=== PATIENT | male | born 1965 | race Caucasian/White ===

== ENCOUNTER 2021-01-02 01:49 | Inpatient (IN) | payer OTHER ==
[2021-01-02] MEDS ORDERED: NA CHLORIDE 0.9% 500 ML ONE (04:35)
[2021-01-02] MEDS ORDERED: ONDANSETRON 4 MG/2 ML VIAL ONE ×2 (04:35→15:12)
[2021-01-02] MEDS ORDERED: MORPHINE 4 MG/ML SYR ONE (04:35)
[2021-01-02 04:55] LABS: Absolute Lymphocytes (CBC) 0.9 K/uL (0.7-4.9); Basophils % 0.4 % (0-1.3); Lymphocytes % 6.7 % (15.3-44.8); MPV 6.1 fL (7.6-11.3); RBC Red Blood Cell Count 2.86 M/uL (4.33-5.43)
[2021-01-02 05:17] LABS: Protime INR 1.29
[2021-01-02 05:41] LABS: ALT/SGPT 16 U/L (12-78); AST/SGOT 14 U/L (15-37); Albumin 2.6 g/dL (3.4-5.0); Alkaline Phosphatase 83 U/L (45-117); BUN Blood Urea Nitrogen 30 mg/dL (7-18); Bicarbonate 26 mmol/L (21-32); Bilirubin Direct 0.1 mg/dL (0-0.2); Bilirubin Total 0.3 mg/dL (0.2-1.0); Glucose Level 97 mg/dL (74-106); Lipase 298 U/L (73-393); Magnesium 2.6 mg/dL (1.8-2.4); NT PRO-BNP 523 pg/mL (<125); Protein, Total 7.9 g/dL (6.4-8.2); Sodium Level 137 mmol/L (136-145); Troponin (Emerg Dept Use Only) < 0.02 ng/mL (0.0-0.045)
[2021-01-02 06:18] LABS: Urine Blood Negative (Negative); Urine Glucose Negative (Negative); Urine Protein Negative (Negative); Urine Specific Gravity 1.025 (1.005-1.030); Urine pH 5.5 (5.0-7.0)
--- NOTE | 2021-01-02 07:06 | EDPHYS ---
Physician Documentation [facility] Name: Kasi Jones Age: 55 yrs Sex: Male : 1965 Arrival Date: 01/02/2021 Time: 02:20 Bed 16 Private MD: ED Physician Michael Avelar HPI: 01/02 03:20 This 55 yrs old Male presents to ER via EMS with complaints of Breathing mh7 Difficulty. 03:20 The patient has shortness of breath with light activity. mh7 03:20 Onset: The symptoms/episode began/occurred 2 day(s) ago. Duration: The symptoms are mh7 intermittent, with no pattern. The patient's shortness of breath is aggravated by light activity, is alleviated by nothing. Associated signs and symptoms: Pertinent positives: chest pain, fever, nausea, Headache, abdominal pain, Pertinent negatives: non-productive cough, productive cough, diaphoresis, dizziness, hemoptysis, loss of consciousness, numbness in extremities, visual changes. Severity of symptoms: At their worst the symptoms were moderate yesterday, in the emergency department the symptoms have improved moderately. Historical: - Allergies: 03:02 No Known Allergies; bb - PSHx: 03:02 PEG tube; tracheostomy; bb - Immunization history:: Adult Immunizations up to date, pt refuses to answer just indicates he is vaccinated. - Social history:: Smoking status: unknown. ROS: 03:20 Eyes: Negative for injury, pain, redness, and discharge, ENT: Negative for injury, mh7 pain, and discharge, Neck: Negative for injury, pain, and swelling, Back: Negative for injury and pain, : Negative for injury, bleeding, discharge, and swelling, MS/Extremity: Negative for injury and deformity, Skin: Negative for injury, rash, and discoloration, Psych: Negative for depression, anxiety, suicide ideation, homicidal ideation, and hallucinations, Allergy/Immunology: Negative for hives, rash, and allergies, Endocrine: Negative for neck swelling, polydipsia, polyuria, polyphagia, and marked weight changes, Hematologic/Lymphatic: Negative for swollen nodes, abnormal bleeding, and unusual bruising. Exam: 03:20 Constitutional: This is a well developed, well nourished patient who is awake, alert, mh7 and in no acute distress. Head/Face: Normocephalic, atraumatic. Eyes: Pupils equal round and reactive to light, extra-ocular motions intact. Lids and lashes normal. Conjunctiva and sclera are non-icteric and not injected. Cornea within normal limits. Periorbital areas with no swelling, redness, or edema. 03:20 Chest/axilla: Normal chest wall appearance and motion. Nontender with no deformity. No lesions are appreciated. Cardiovascular: Regular rate and rhythm with a normal S1 and S2. No gallops, murmurs, or rubs. Normal PMI, no JVD. No pulse deficits. Respiratory: Lungs have equal breath sounds bilaterally, clear to auscultation and percussion. No rales, rhonchi or wheezes noted. No increased work of breathing, no retractions or nasal flaring. Abdomen/GI: Soft, non-tender, with normal bowel sounds. No distension or tympany. No guarding or rebound. No evidence of tenderness throughout. 03:20 Back: No spinal tenderness. No costovertebral tenderness. Full range of motion. Skin: Warm, dry with normal turgor. Normal color with no rashes, no lesions, and no evidence of cellulitis. MS/ Extremity: Pulses equal, no cyanosis. Neurovascular intact. Full, normal range of motion. Neuro: Awake and alert, GCS 15, oriented to person, place, time, and situation. Cranial nerves II-XII grossly intact. Motor strength 5/5 in all extremities. Sensory grossly intact. Cerebellar exam normal. Normal gait. Psych: Awake, alert, with orientation to person, place and time. Behavior, mood, and affect are within normal limits. 03:20 Neck: C-spine: appears grossly normal, Thyroid: appears normal, Trachea: Tracheostomy in place. ROM/movement: is normal, Lymph nodes: no appreciated lymphadenopathy. 03:20 Abdomen/GI: Inspection: PEG tube in place. 06:40 Abdomen/GI: Rectal exam: Stool: brown, guaiac negative, the exam is chaperoned by the [facility] nurse. Vital Signs: 02:48 BP 131 / 87; Pulse 81; Resp 20 S; Temp 98.6(O); Pulse Ox 100% on R/A; Weight 42.55 kg bb (M); Height 5 ft. 4 in. (162.56 cm) (R); 06:08 BP 143 / 90; Pulse 58; Resp 16; Pulse Ox 100% ; ea 09:13 BP 134 / 87; Pulse 60; Resp 13; Temp 97.8; Pulse Ox 100% ; Pain 6/10; ll1 02:48 Body Mass Index 16.10 (42.55 kg, 162.56 cm) bb MDM: 07:04 Differential diagnosis: Anemia Anxiety Reaction asthma, Bronchitis CHF exacerbation, mh7 Chronic Obstructive Pulmonary Disease Myocardial Infarction pneumonia, Pneumothorax Psychogenic pulmonary edema, Pulmonary Embolism reactive airway disease. Data reviewed: vital signs, nurses notes, lab test result(s), cardiac enzymes, CBC, electrolytes, EKG, radiologic studies, plain films. Data interpreted: Pulse oximetry: on room air is 100 %. Interpretation: normal. Counseling: I had a detailed discussion with the patient and/or guardian regarding: the historical points, exam findings, and any diagnostic results supporting the discharge/admit diagnosis, the presence of at least one elevated blood pressure reading (>120/80) during this emergency department visit, lab results, radiology results, the need for further work-up and treatment in the hospital. Response to treatment: the patient's symptoms have mildly improved after treatment. 07:05 Patient medically screened. [facility] 01/02 03:44 Order name: Basic Metabolic Panel [facility] 01/02 03:44 Order name: CBC with Diff [facility] 01/02 03:44 Order name: LFT's; Complete Time: 05:58 [facility] 01/02 03:44 Order name: Magnesium; Complete Time: 05:58 [facility] 01/02 03:44 Order name: NT PRO-BNP; Complete Time: 05:58 [facility] 01/02 03:44 Order name: PT-INR; Complete Time: 05:58 [facility] 01/02 03:44 Order name: Troponin (emerg Dept Use Only); Complete Time: 05:58 [facility] 01/02 03:44 Order name: Lipase; Complete Time: 05:58 [facility] 01/02 03:44 Order name: Basic Metabolic Panel; Complete Time: 05:58 [facility] 01/02 03:47 Order name: Influenza Screen (a \T\ B); Complete Time: 06:04 [facility] 01/02 05:02 Order name: Manual Differential [facility] 01/02 05:03 Order name: Type And Screen [facility] 01/02 06:18 Order name: Urine Dipstick-Ancillary; Complete Time: 06:37 [facility] 01/02 03:44 Order name: XRAY Chest (1 view) [facility] 01/02 06:32 Order name: SARS-COV-2 RT PCR; Complete Time: 06:37 [facility] 01/02 06:35 Order name: ABO/RH no charge; Complete Time: 06:37 [facility] 01/02 07:11 Order name: Packed RBC Leukored [facility] 01/02 11:04 Order name: CBC with Automated Diff [facility] 01/02 11:04 Order name: Comprehensive Metabolic Panel [facility] 01/02 11:04 Order name: Comprehensive Metabolic Panel [facility] 01/02 11:04 Order name: BB Add On [facility] 01/02 11:04 Order name: CBC with Automated Diff [facility] 01/02 11:06 Order name: PTH Intact [facility] 01/02 11:06 Order name: Miscellaneous Test Lab [facility] 01/02 11:06 Order name: Vitamin D, 25 (OH), TOTAL [facility] 01/02 11:06 Order name: Vitamin D,1,25 Dihydroxy [facility] 01/02 03:44 Order name: EKG; Complete Time: 03:45 [facility] 01/02 03:44 Order name: EKG - Nurse/Tech; Complete Time: 04:34 [facility] 01/02 03:44 Order name: IV Saline Lock; Complete Time: 04:34 [facility] 01/02 03:44 Order name: Labs collected and sent; Complete Time: 04:34 [facility] 01/02 03:44 Order name: O2 Per Protocol; Complete Time: 04:34 [facility] 01/02 03:44 Order name: O2 Sat Monitoring; Complete Time: 04:34 [facility] 01/02 06:39 Order name: Transfuse [facility] 01/02 06:49 Order name: CT Head Brain wo Cont [facility] 01/02 06:49 Order name: CT Chest For PE Angio [facility] 01/02 06:49 Order name: CT Abd/Pelvis - IV Contrast Only [facility] 01/02 11:04 Order name: NPO EDMS Administered Medications: 04:30 Drug: NS 0.9% 500 ml Route: IV; Rate: bolus; Site: right antecubital; bb 05:18 Follow up: IV Status: Completed infusion; IV Intake: 500ml bb 04:30 Drug: morphine 4 mg {Note: RASS 0.} Route: IVP; Site: right antecubital; bb 05:18 Follow up: Response: No adverse reaction; RASS: Drowsy (-1) bb 04:32 Drug: Zofran (Ondansetron) 4 mg Route: IVP; Site: right antecubital; bb 05:19 Follow up: Response: No adverse reaction bb 06:51 CANCELLED (Inappropriate at this time): NS 0.9% 1000 ml IV at 150 ml/hr continuous [facility] 11:55 Drug: NS 0.9% 500 ml Route: IV; Rate: bolus; Site: right antecubital; ll1 13:00 Follow up: Response: No adverse reaction; IV Status: Completed infusion; IV Intake: ll1 500ml 13:00 Not Given (went to floor orderss): NS 0.9% 1000 ml IV at 200 ml/hr continuous ll1 Disposition Summary: 01/02/21 07:05 Hospitalization Ordered Hospitalization Status: Inpatient Admission [facility] Provider: Sunil James [facility] Condition: Stable [facility] Problem: new [facility] Symptoms: have improved [facility] Bed/Room Type: Standard [facility] Location: Telemetry/MedSurg (Inpatient)(01/02/21 18:33) Room Assignment: 214(01/02/21 18:33) Diagnosis - Symptomatic Anemia [facility] - Hypercalcemia [facility] Forms: - Medication Reconciliation Form [facility] - SBAR form [facility] Signatures: Dispatcher [employer] EDMS Neena Perdue Brenda, RN RN bb Lewis, Lynsay, RN RN 1 Michael Avelar MD MD [facility] Corrections: (The following items were deleted from the chart) 04:42 03:47 CORONAVIRUS+MR.LAB.BRZ ordered. EDWV EDMS 06:51 06:48 NS 0.9% 1000 ml IV at 150 ml/hr continuous ordered. [place] [id number] 07:11 06:38 PACKED RBC LEUKORED -1+BB.LAB.BRZ ordered. [facility] EDMS 07:11 06:38 ABO/RH typing ordered. [facility] EDMS 07:11 06:38 Antibody Screen ordered. [facility] EDMS 15:34 07:05 Telemetry/MedSurg (Inpatient) [facility] bd 15:34 07:05 mh7 bd 18:33 15:34 [facility] ER HOLD bd bd 18:33 15:34 ERHOLD- bd bd
--- NOTE | 2021-01-02 07:06 | ER ---
Nurse's Notes [facility] Name: Kasi Jones Age: 55 yrs Sex: Male : 1965 Arrival Date: 01/02/2021 Time: 02:20 Bed 16 Private MD: Diagnosis: Symptomatic Anemia;Hypercalcemia Presentation: 01/02 02:48 Chief complaint: Patient states: pt does not speak wrote answers current complaint is bb "I can't breath" did not indicate for how long. Coronavirus screen: difficulty breathing, Client presents with at least one sign or symptom that may indicate coronavirus-19. Standard/surgical mask placed on the client. Ebola Screen: No symptoms or risks identified at this time. Initial Sepsis Screen: Does the patient meet any 2 criteria? No. Patient's initial sepsis screen is negative. Does the patient have a suspected source of infection? No. Patient's initial sepsis screen is negative. Risk Assessment: Do you want to hurt yourself or someone else? Patient reports no desire to harm self or others. Onset of symptoms is unknown. 02:48 Method Of Arrival: EMS: [facility] 02:48 Acuity: GERMÁN 3 bb Triage Assessment: 03:02 General: Appears in no apparent distress. slender, Behavior is uncooperative. Pain: bb Complains of pain in all over. Neuro: Level of Consciousness is awake, alert, Oriented to person, place, situation. Cardiovascular: Capillary refill < 3 seconds Patient's skin is warm and dry. Respiratory: Reports shortness of breath Respiratory effort is unlabored, Onset: The symptoms/episode began/occurred at an unknown time. the patient has mild shortness of breath. GI: PEG tube to abdomen. Derm: Skin is pale. Musculoskeletal: Circulation, motion, and sensation intact. Historical: - Allergies: 03:02 No Known Allergies; bb - PSHx: 03:02 PEG tube; tracheostomy; bb - Immunization history:: Adult Immunizations up to date, pt refuses to answer just indicates he is vaccinated. - Social history:: Smoking status: unknown. Screenin:12 Abuse screen: Denies threats or abuse. Nutritional screening: No deficits noted. bb Tuberculosis screening: No symptoms or risk factors identified. Fall Risk None identified. Assessment: 03:12 Reassessment: No changes from previously documented assessment. see triage assessment. bb Respiratory: Airway tracheostomy pt uncooperative. 04:30 Reassessment: Patient is alert, oriented x 3, equal unlabored respirations, skin bb warm/dry/pink. IV site intact, patent, with fluids infusing. 05:19 Reassessment: pt appears to be sleeping, eyes closed, resp unlabored, awaiting bb diagnostic results. 07:00 Reassessment: No changes from previously documented assessment. Patient and/or family ll1 updated on plan of care and expected duration. Pain level reassessed. Patient is alert, oriented x 3, equal unlabored respirations, skin warm/dry/pink. 08:00 Reassessment: No changes from previously documented assessment. Patient and/or family ll1 updated on plan of care and expected duration. Pain level reassessed. Patient is alert, oriented x 3, equal unlabored respirations, skin warm/dry/pink. 09:00 Reassessment: No changes from previously documented assessment. Patient and/or family ll1 updated on plan of care and expected duration. Pain level reassessed. Patient is alert, oriented x 3, equal unlabored respirations, skin warm/dry/pink. Vital Signs: 02:48 BP 131 / 87; Pulse 81; Resp 20 S; Temp 98.6(O); Pulse Ox 100% on R/A; Weight 42.55 kg bb (M); Height 5 ft. 4 in. (162.56 cm) (R); 06:08 BP 143 / 90; Pulse 58; Resp 16; Pulse Ox 100% ; ea 09:13 BP 134 / 87; Pulse 60; Resp 13; Temp 97.8; Pulse Ox 100% ; Pain 6/10; ll1 02:48 Body Mass Index 16.10 (42.55 kg, 162.56 cm) ED Course: 02:20 Patient arrived in ED. bp1 03:02 Triage completed. bb 03:02 Arm band placed on Patient placed in waiting room, Patient notified of wait time. bb 03:08 Michael Avelar MD is Attending Physician. mh7 03:12 Chhaya Zabala, DARRIUS is Primary Nurse. bb 03:12 Patient has correct armband on for positive identification. bb 04:10 XRAY Chest (1 view) In Process Unspecified. EDMS 04:30 COVID swab sent to lab. Flu and/or RSV swab sent to lab. Inserted saline lock: 20 gauge bb in right antecubital area, using aseptic technique. Missed attempt(s): 20 gauge in right upper arm. Bleeding controlled, band aid applied, catheter tip intact. 04:42 Initial lab(s) drawn, by me, sent to lab. bb 05:41 Notified ED physician of a critical lab result(s). calcium of 14.9 Dr Avelar notified. bb 07:05 Sunil James MD is Hospitalizing Provider. 7 07:42 CT Abd/Pelvis - IV Contrast Only In Process Unspecified. EDMS 07:42 CT Chest For PE Angio In Process Unspecified. EDMS 07:42 CT Head Brain wo Cont In Process Unspecified. EDMS Administered Medications: 04:30 Drug: NS 0.9% 500 ml Route: IV; Rate: bolus; Site: right antecubital; bb 05:18 Follow up: IV Status: Completed infusion; IV Intake: 500ml bb 04:30 Drug: morphine 4 mg {Note: RASS 0.} Route: IVP; Site: right antecubital; bb 05:18 Follow up: Response: No adverse reaction; RASS: Drowsy (-1) bb 04:32 Drug: Zofran (Ondansetron) 4 mg Route: IVP; Site: right antecubital; bb 05:19 Follow up: Response: No adverse reaction bb 06:51 CANCELLED (Inappropriate at this time): NS 0.9% 1000 ml IV at 150 ml/hr continuous 7 11:55 Drug: NS 0.9% 500 ml Route: IV; Rate: bolus; Site: right antecubital; ll1 13:00 Follow up: Response: No adverse reaction; IV Status: Completed infusion; IV Intake: ll1 500ml 13:00 Not Given (went to floor orderss): NS 0.9% 1000 ml IV at 200 ml/hr continuous ll1 Intake: 05:18 IV: 500ml; Total: 500ml. bb 13:00 IV: 500ml; Total: 1000ml. ll1 Outcome: 07:05 Decision to Hospitalize by Provider. 7 21:31 Patient left the ED. ch4 Signatures: Dispatcher [employer] EDMS Chhaya Zabala RN RN Adrienne Acosta RN RN ea Lewis, Lynsay, RN RN ll1 Aleena Izaguirre Maurice, MD MD mh7 Flor Diaz RN RN ch4
[2021-01-02 07:21] LABS: Anisocytosis 1+; Blood Morphology Comment NOTED (NOT SEEN); Hypochromasia 1+; Platelet Estimate INCR
[2021-01-02] MEDS ORDERED: NA CHLORIDE 0.9% 1,000 ML ONE ×2 (07:29→19:52)
--- NOTE | 2021-01-02 07:55 | RAD REPORT ---
EXAM DESCRIPTION: CT - Head Brain Wo Cont - 01/02/2021 7:43 am CLINICAL HISTORY: HEADACHE COMPARISON: No comparisons TECHNIQUE: Axial 5 mm thick images of the head were obtained without IV contrast. All CT scans are performed using dose optimization technique as appropriate and may include automated exposure control or mA/KV adjustment according to patient size. FINDINGS: No intracranial hemorrhage, mass, edema or shift of mid-line structures. No acute infarcti on changes seen. No abnormal extra-axial fluid collections. Early volume loss changes are evident gre ater than usually seen at this age. Ventricles are normal size. Physiologic calcifications are presen t. Paranasal sinuses are clear. Bilateral mastoid air cell opacification is present with partial opacifi cation of the middle ears. Mucus in soft tissue attenuation are present in the nasal passages and in the oropharynx. This is not adequately imaged on this CT head examination for further assessment. The re is a 2.4 centimeter cystic mass in the right-side neck also only partially imaged on this study. N o wall thickening or edema suspected. This could be an incidental second branchial cleft cyst rather than an infectious or inflammatory process. No acute bony findings. IMPRESSION: No acute intracranial finding identified. Patient does appear to have early for age volu me loss. Bilateral mastoiditis findings with possible bilateral middle ear opacification. Soft tissue mass density in the posterior nasopharynx could be prominent adenoid tissue. This could b e accumulated mucous. The CT head examination does not adequately imaged this region. Lateral right neck 2.4 cm cystic mass only partially imaged. This could be an incidental second branc hial cleft cyst but cannot be fully characterized.
--- NOTE | 2021-01-02 07:59 | RAD REPORT ---
EXAM DESCRIPTION: CT - Chest For Pe Angio - 01/02/2021 7:42 am CLINICAL HISTORY: Chest pain;SOB COMPARISON: Abdomen Pelvis W Contrast dated 01/02/2021 TECHNIQUE: Dynamically enhanced 3 mm thick images of the chest were obtained during administration o f approximately 150mL Isovue 370 IV contrast. Coronal and oblique MIP reconstruction images were gene rated and reviewed. Exam utilizes a protocol to evaluate the pulmonary arterial tree. All CT scans are performed using dose optimization technique as appropriate and may include automated exposure control or mA/KV adjustment according to patient size. FINDINGS: No pulmonary emboli are identified. The aorta as imaged shows no acute or suspicious finding. No pericardial thickening or effusion. No infiltrate or mass in the lung parenchyma. No pleural effusion or pleural thickening. No mediastinal or hilar suspicious masses. No chest wall masses or abnormal axillary lymphadenopathy. Trach tube is in place well positioned. Etiology for the trach tube is unknown. Patient has an overal l edematous or fluid retention pattern to the subcutaneous fatty tissues of the chest. The neck is on ly partially imaged. Tissue planes are poorly defined with the subcutaneous fat edema. There appears to be significant bilateral lymphadenopathy. This cannot be accurately assessed in this limited setti ng. IMPRESSION: No pulmonary emboli identified. No acute lung parenchymal process. Suspected significant bilateral cervical and neck base lymphadenopathy with the patient showing edema within the subcutaneous fatty tissues.Trach tube is in place. No malignant history for this patient has been detailed.
--- NOTE | 2021-01-02 08:06 | RAD REPORT ---
EXAM DESCRIPTION: CT - Abdomen Pelvis W Contrast - 01/02/2021 7:42 am CLINICAL HISTORY: ABD PAIN COMPARISON: No comparisons TECHNIQUE: Biphasic, helical CT imaging of the abdomen and pelvis was performed following 100 ml non -ionic IV contrast. No oral contrast administered. All CT scans are performed using dose optimization technique as appropriate and may include automated exposure control or mA/KV adjustment according to patient size. FINDINGS: Lung findings are detailed on the separate CT chest report. No focal liver parenchymal lesion. No portal vein thrombus identified. No primary pancreatic process identifiable. No focal splenic lesion. Gallbladder and biliary tree are also without suspicious findi ng. Symmetric renal function is seen with no hydronephrosis or suspicious renal mass. No pyelonephritis o r acute parenchymal process. No bladder abnormalities. No adrenal abnormalities. Peg tube is present in the left upper quadrant. Contrast opacified bulb is positioned along the outer wall of the stomach. There is tenting of the anterior abdominal wall towards the bulb and tubing but intraluminal placement of the tube within viscus cannot be confirmed. Gastric antrum wall thickening and edema present continuing into the duodenal bulb and proximal duode nal C-loop. Proximal stomach wall is not thickened or edematous. No dilated small bowel loops. No acu te small bowel finding identifiable. Appendix is not clearly defined. Patient has a large amount of s tool distending the colon from cecum through proximal sigmoid. No free air or pneumatosis. Fluid retention is seen in the peritoneal, retroperitoneal and subcutaneo us fatty tissues. No measurable free fluid. No hernia, mass or bulky lymphadenopathy. No suspicious bony findings. IMPRESSION: No free air, abscess or surgically emergent finding identifiable. Antritis or ulcerative edema changes seen in the gastric antrum and proximal portion of the duodenal C-loop. Left upper quadrant PEG tube is identified. The bulb and tip appear to be outside of the stomach. Pr oper positioning may need to be confirmed. Large stool volume distending the colon from cecum through proximal sigmoid colon. Appendix is not cl early defined. Anasarca pattern with fluid retention in the subcutaneous fatty tissues, peritoneal fat and retroperi toneal fat.
[2021-01-02] MEDS ORDERED: ACETAMINOPHEN 325 MG TABLET ONE (08:33)
[2021-01-02] MEDS ORDERED: DIPHENHYDRAMINE 50 MG/ML VIAL ONE (08:33)
--- NOTE | 2021-01-02 08:50 | RAD REPORT ---
EXAM DESCRIPTION: RAD - Chest Single View - 01/02/2021 4:10 am CLINICAL HISTORY: SOB COMPARISON: None TECHNIQUE: AP portable chest image was obtained 01/02/2021 4:10 am . FINDINGS: Trach tube is present appearing adequately positioned. No acute lung parenchymal process i dentified. Heart and vasculature are normal. No measurable pleural effusion and no pneumothorax. No a cute bony abnormality seen. Old rib trauma noted on the right. No acute aortic finding. IMPRESSION: No acute cardiopulmonary process.
[2021-01-02] MEDS ORDERED: ONDANSETRON 4 MG/2 ML VIAL IV PRN (10:59)
[2021-01-02] MEDS: NA CHLORIDE 0.9% 1,000 ML IV SCH (11:00)
[2021-01-02] MEDS ORDERED: PAMIDRONATE DISOD 30 MG VIAL IV ONE (11:05)
[2021-01-02 11:58] VITALS: BMI 17.2
[2021-01-02] MEDS ORDERED: PAMIDRONATE 90 MG in NA CHLORIDE 0.9% 250 ML IV ONE (13:00)
[2021-01-02] MEDS: MORPHINE 2 MG/ML SYR IV PRN ×2 (15:03→21:20)
[2021-01-02] MEDS ORDERED: MORPHINE 2 MG/ML SYR ONE ×2 (15:12→21:34)
--- NOTE | 2021-01-02 15:37 | EKG ---
Test Date: 2021-01-02 Test Time: 04:02:08 [employer] Worker: DRAGAN MEASUREMENT RESULTS: Intervals: Rate: 63 CT: 134 QRSD: 88 QT: 386 QTc: 395 [place]: P: 75 CT: 134 QRS: 23 T: 44 INTERPRETIVE STATEMENTS: Normal sinus rhythm with sinus arrhythmia Normal ECG No previous ECG available for comparison Electronically Signed On 01-02-21 15:36:52 CDT by Scar Ortiz
--- NOTE | 2021-01-02 16:39 | P.HP ---
Certification for Inpatient Patient admitted to: Inpatient With expected LOS: >2 Midnights Patient will require the following post-hospital care: None Practitioner: I am a practitioner with admitting privileges, knowledge of patient current condition, hospital course, and medical plan of care. Services: Services provided to patient in accordance with Admission requirements found in Title 42 Section 412.3 of the Code of Federal Regulations Patient History Date of Service: 01/02/21 Reason for admission: Shortness of breath History of Present Illness: Patient is a 55-year-old gentleman who came to the hospital this morning with difficulty breathing. He was seen by the ER physician and workup revealed severe anemia with a hemoglobin of 6.0 and hypercalcemia. Patient's calcium was 14. Patient has history of head and neck cancer. I do not know the pathology. Most of his workup was done at [facility] and he has a tracheostomy as well as a PEG tube. Patient does not take any calcium supplements. Most likely related to parathyroid related peptide secretion from his malignancy. Will try to get his records faxed over from [facility]. Patient communicates only by writing. He looks like he gets frustrated quite easily. Were going to go ahead and admit him and transfuse 2 units of packed red blood cells. Will also start him on pamidronate to correct his hypercalcemia. Patient lives with his sister who states she is no longer able to care for him. Will discuss with patient regarding hospice care as he does have metastatic lesions on his CT imaging. The sister his wanting patient to proceed with hospice but he is able to make his own decisions so will discuss this with him prior to initiating anything. Anticipate discharge over the next 48-72 hr. Allergies No Known Allergies Allergy (Unverified 12/11/15 17:24) - Past Medical/Surgical History Has patient received pneumonia vaccine in the past: No Diabetic: No -: G tube -: Tracheostomy - Family History Father Family History: Reviewed- Non-Contributory - Social History Smoking Status: Former smoker Alcohol use: No CD- Drugs: No Review of Systems 10-point ROS is otherwise unremarkable Physical Examination - Vital Signs Temperature: 98.3 F Blood Pressure: 99/73 Pulse: 50 Respirations: 13 Pulse Ox (%): 100 - Physical Exam General: Alert, In no apparent distress, Cachectic HEENT: Atraumatic, PERRLA, Mucous membr. moist/pink, EOMI, Sclerae nonicteric Neck: Supple, 2+ carotid pulse no bruit, No LAD, Other (Tracheostomy), Without JVD or thyroid abnormality Respiratory: Clear to auscultation bilaterally, Normal air movement Cardiovascular: Regular rate/rhythm, Normal S1 S2 Gastrointestinal: Normal bowel sounds, No tenderness, Other (PEG tube placement) Musculoskeletal: No tenderness Integumentary: No rashes Neurological: Normal speech, Other (Generalized weakness with flat affect) Lymphatics: No axilla or inguinal lymphadenopathy - Studies Laboratory Data (last 24 hrs) 01/02/21 04:42: PT 14.9 H, INR 1.29 01/02/21 04:42: WBC 13.10 H, Hgb 6.0 L*, Hct 19.0 L*, Plt Count 557 H 01/02/21 04:42: Sodium 137, Potassium 4.0, BUN 30 H, Creatinine 1.17, Glucose 97, Magnesium 2.6 H, Total Bilirubin 0.3, AST 14 L, ALT 16, Alkaline Phosphatase 83, Lipase 298 Microbiology Data (last 24 hrs): 01/02/21 04:30 Nasopharnyx Influenza Type A Antigen Screen - Final 01/02/21 04:30 Nasopharnyx Influenza Type B Antigen Screen - Final Assessment & Plan - Problems (Diagnosis) (1) Symptomatic anemia Current Visit: Yes Status: Acute (2) Hypercalcemia Current Visit: Yes Status: Acute (3) Altered mental status Current Visit: Yes Status: Acute (4) Head and neck cancer Current Visit: Yes Status: Acute - Plan Plan: 1. IV hydration 2. Transfuse 2 units of packed red blood cells 3. Aredia IV x1 for the hypercalcemia 4. Continue with gentle diuresing 5. Monitor renal function 6. Work up the hypercalcemia most likely related to inappropriate PTH RP secretion 7. GI and DVT prophylaxis Discharge Plan: Home Plan to discharge in: Greater than 2 days - Advance Directives Does patient have a Living Will: No Does patient have a Durable POA for Healthcare: No - Code Status/Comfort Care Code Status Assessed: Yes Code Status: Full Code Critical Care: No Time Spent Managing PTS Care (In Minutes): 45
[2021-01-03] MEDS: NA CHLORIDE 0.9% 1,000 ML IV SCH ×2 (01:34→14:59)
[2021-01-03] MEDS: MORPHINE 2 MG/ML SYR IV PRN ×4 (02:05→20:20)
[2021-01-03 04:03] LABS: Absolute Lymphocytes (CBC) 0.5 K/uL (0.7-4.9); Hematocrit 26.6 % (39.6-49.0); Lymphocytes % 3.2 % (15.3-44.8); MPV 6.5 fL (7.6-11.3); RBC Red Blood Cell Count 3.61 M/uL (4.33-5.43)
[2021-01-03 04:31] LABS: Albumin 2.2 g/dL (3.4-5.0); Bilirubin Total 0.4 mg/dL (0.2-1.0); Potassium 4.3 mmol/L (3.5-5.1); Protein, Total 7.1 g/dL (6.4-8.2)
[2021-01-03] MEDS ORDERED: POLYETHYL GLY 3350 17 GM/DOSE PO ONE (07:10)
[2021-01-03] MEDS ORDERED: MINERAL OIL 30 ML UCUP PO ONE (07:10)
[2021-01-03] MEDS ORDERED: ALBUMIN HUMAN 25% 100 ML IV ONE (07:15)
[2021-01-03] MEDS ORDERED: FUROSEMIDE 20 MG/ 2ML VIAL IV ONE (07:15)
--- NOTE | 2021-01-03 07:19 | P.PN ---
Subjective Date of Service: 01/03/21 Patient still slightly confused. Calcium level is still significantly elevated. Patient also malnourished. Given dose of pamidronate with no significant response. Continue with calcitonin and IV Lasix along with IV fluids to try to flush out the calcium. Hopefully, patient mentation continues to improve. Feedings as tolerated. Supplemental feedings through tube feedings as well. Patient may need placement per family. May consider hospice care as well. Review of Systems 10-point ROS is otherwise unremarkable Physical Examination - Vital Signs Temperature: 98.7 F Blood Pressure: 132/77 Pulse: 89 Respirations: 16 Pulse Ox (%): 100 - Physical Exam General: Alert, In no apparent distress, Confused HEENT: Atraumatic, PERRLA, EOMI Neck: Supple, Other (Tracheostomy) Respiratory: Other (Upper airway noise) Cardiovascular: Regular rate/rhythm, Normal S1 S2 Gastrointestinal: Normal bowel sounds, Soft and benign, Non-distended, No tenderness Musculoskeletal: No clubbing, No swelling, No tenderness Integumentary: No rashes Neurological: Other (Generalized weakness) - Studies Microbiology Data (last 24 hrs): 01/02/21 04:30 Nasopharnyx Influenza Type A Antigen Screen - Final 01/02/21 04:30 Nasopharnyx Influenza Type B Antigen Screen - Final Medications List Reviewed: Yes Assessment & Plan - Problems (Diagnosis) (1) Symptomatic anemia Current Visit: Yes Status: Acute (2) Hypercalcemia Current Visit: Yes Status: Acute (3) Altered mental status Current Visit: Yes Status: Acute (4) Head and neck cancer Current Visit: Yes Status: Acute - Plan Plan: 1. IV hydration; gentle Lasix to help calcium go down. Status post Aredia and will continue monitoring calcium level. May be able to repeat in 1-2 weeks if still elevated. 2. Status post 2 units of packed red blood cells and monitor H&H 3. Long-term prognosis is poor as patient is not deemed to get any more treatment for his cancer. Patient has a do not resuscitate. 4. Physical therapy evaluation; placement may be an issue as the sister does not want care for him at home because she is unable to any longer 5. Continue monitoring renal function in additional lab data 6. Work up the hypercalcemia most likely related to inappropriate PTH-RP secretion 7. GI and DVT prophylaxis Discharge Plan: Home Plan to discharge in: Greater than 2 days - Advance Directives Does patient have a Living Will: No Does patient have a Durable POA for Healthcare: No - Code Status/Comfort Care Code Status: Full Code Critical Care: No Time Spent Managing PTS Care (In Minutes): 35
[2021-01-03] MEDS: CALCITONIN NASAL SPRAY 200 IU/DOSE NAS SCH (10:44)
[2021-01-03 11:14] LABS: Potassium 3.8 mmol/L (3.5-5.1)
[2021-01-04] MEDS: MORPHINE 2 MG/ML SYR IV PRN ×5 (00:58→23:38)
[2021-01-04] MEDS: NA CHLORIDE 0.9% 1,000 ML IV SCH ×3 (03:00→16:20)
[2021-01-04 07:01] LABS: Absolute Lymphocytes (CBC) 0.6 K/uL (0.7-4.9); Basophils % 0.5 % (0-1.3); Hematocrit 26.1 % (39.6-49.0); MPV 6.4 fL (7.6-11.3)
[2021-01-04 07:21] LABS: Albumin 2.4 g/dL (3.4-5.0); Bilirubin Total 0.3 mg/dL (0.2-1.0); Magnesium 2.2 mg/dL (1.8-2.4); Potassium 3.6 mmol/L (3.5-5.1); Protein, Total 7.2 g/dL (6.4-8.2)
[2021-01-04] MEDS: CALCITONIN NASAL SPRAY 200 IU/DOSE NAS SCH (08:45)
[2021-01-04] MEDS ORDERED: NA CHLORIDE 0.9% 500 ML IV STA (08:57)
[2021-01-04] MEDS ORDERED: FUROSEMIDE 20 MG/ 2ML VIAL IV ONE (10:00)
[2021-01-04] MEDS ORDERED: ALBUMIN HUMAN 25% 100 ML IV ONE (10:57)
[2021-01-04 14:15] LABS: Potassium 3.7 mmol/L (3.5-5.1)
[2021-01-04] MEDS: ACETAMINOPHEN 500 MG TAB PO PRN (20:23)
[2021-01-05] MEDS: NA CHLORIDE 0.9% 1,000 ML IV SCH ×2 (02:16→22:15)
[2021-01-05] MEDS: MORPHINE 2 MG/ML SYR IV PRN ×4 (03:53→21:51)
[2021-01-05] MEDS: ACETAMINOPHEN 500 MG TAB PO PRN (09:10)
[2021-01-05] MEDS: CALCITONIN NASAL SPRAY 200 IU/DOSE NAS SCH (09:10)
[2021-01-05 12:25] LABS: Basophils % 0.6 % (0-1.3); Hematocrit 30.3 % (39.6-49.0); Lymphocytes % 8.2 % (15.3-44.8); MPV 6.9 fL (7.6-11.3); RBC Red Blood Cell Count 3.95 M/uL (4.33-5.43)
[2021-01-05 12:59] LABS: Magnesium 2.6 mg/dL (1.8-2.4); Phosphorus 4.8 mg/dL (2.5-4.9); Potassium 3.5 mmol/L (3.5-5.1)
--- NOTE | 2021-01-05 13:48 | RAD REPORT ---
EXAM DESCRIPTION: RAD - Chest Single View - 01/05/2021 12:18 pm CLINICAL HISTORY: unresponsive Chest pain. COMPARISON: Chest Single View dated 01/02/2021 FINDINGS: Portable technique limits examination quality. Linear atelectasis is present both lung bases. The lungs are otherwise clear. The heart is normal in size. Tracheostomy tube is in appropriate position.
[2021-01-06] MEDS: MORPHINE 2 MG/ML SYR IV PRN ×5 (01:56→22:09)
[2021-01-06] MEDS: ACETAMINOPHEN 500 MG TAB PO PRN ×3 (03:22→20:04)
[2021-01-06] MEDS: NA CHLORIDE 0.9% 1,000 ML IV SCH ×3 (08:20→21:40)
[2021-01-06 11:06] LABS: Vitamin D 1,25-Dihydroxy Total 10 pg/mL (18-72); Vitamin D,1,25-OH2, D2 <8 pg/mL
[2021-01-06] MEDS: CALCITONIN NASAL SPRAY 200 IU/DOSE NAS SCH (11:28)
[2021-01-06] MEDS: ENSURE ENLIVE 237 ML CAN PO SCH (20:05)
--- NOTE | 2021-01-07 00:59 | P.PN ---
Date of Service: 01/04/21 Subjective Patient with no new changes. Unable to discharge to home so will need to go to a alf facility. Patient finally agreeable Review of Systems 10-point ROS is otherwise unremarkable Physical Examination - Vital Signs Reviewed - Physical Exam General: Alert, In no apparent distress, Confused Neck: Supple, Other (Tracheostomy) Respiratory: Other (Upper airway noise) Cardiovascular: Regular rate/rhythm, Normal S1 S2 Gastrointestinal: Normal bowel sounds, Soft and benign, Non-distended, No tenderness Neurological: Other (Generalized weakness) Assessment & Plan - Problems (Diagnosis) (1) Symptomatic anemia Current Visit: Yes Status: Acute (2) Hypercalcemia Current Visit: Yes Status: Acute (3) Altered mental status Current Visit: Yes Status: Acute (4) Metastatic head and neck cancer Current Visit: Yes Status: Acute (5) Generalized weakness Current Visit: Yes Status: Acute - Plan 1. Continue with correcting calcium; continue monitoring closely IV hydration; gentle Lasix to help calcium go down. Status post Aredia and will continue monitoring calcium level. May be able to repeat in 1-2 weeks if still elevated. 2. Hemoglobin has been stable 3. Long-term prognosis is poor as patient is not deemed to get any more treatme nt for his cancer. Patient has a do not resuscitate. Does not want hospice and the family is unable to care for him so patient has agreed to a alf facility 4. Physical therapy evaluation; placement may be an issue as the sister does not want care for him at home because she is unable to any longer 5. GI and DVT prophylaxis Discharge Plan: Jail Plan to discharge in: Greater than 2 days - Advance Directives Does patient have a Living Will: Yes Does patient have a Durable POA for Healthcare: No - Code Status/Comfort Care Code Status: Full Code Critical Care: No Time Spent Managing PTS Care (In Minutes): 35
--- NOTE | 2021-01-07 01:00 | P.PN ---
Date of Service: 01/05/21 Subjective Patient had a bed and unable to breathe. Trach was clots and this had to be removed. New trace placed. 4 Mozambican. Obturator in the bag; appreciate respiratory therapy assistance and emergency room assistance. Review of Systems 10-point ROS is otherwise unremarkable Physical Examination - Vital Signs Reviewed - Physical Exam General: Alert, In no apparent distress, Confused Neck: Supple, Other (Tracheostomy-replace with 4 Mozambican trach) Respiratory: Other (Upper airway noise) Cardiovascular: Regular rate/rhythm, Normal S1 S2 Gastrointestinal: Normal bowel sounds, Soft and benign, Non-distended, No tenderness Neurological: Other (Generalized weakness) Assessment & Plan - Problems (Diagnosis) (1) Symptomatic anemia Current Visit: Yes Status: Acute (2) Hypercalcemia Current Visit: Yes Status: Acute (3) Altered mental status Current Visit: Yes Status: Acute (4) Metastatic head and neck cancer Current Visit: Yes Status: Acute (5) Generalized weakness Current Visit: Yes Status: Acute - Plan 1. Calcium slowly correcting. Continue with current treatment with calcitonin; status post Aredia. Gentle hydration and Lasix 2. Hemoglobin has been stable; monitor H&H 3. Long-term prognosis is poor as patient is not deemed to get any more treatment for his cancer. Patient has a do not resuscitate. Does not want hospice and the family is unable to care for him so patient has agreed to a jail facility 4. Physical therapy evaluation; placement may be an issue as the sister does not want care for him at home because she is unable to any longer 5. GI and DVT prophylaxis Discharge Plan: Shelter Plan to discharge in: Greater than 2 days - Advance Directives Does patient have a Living Will: Yes Does patient have a Durable POA for Healthcare: No - Code Status/Comfort Care Code Status: Full Code Critical Care: No Time Spent Managing PTS Care (In Minutes): 35
--- NOTE | 2021-01-07 01:01 | P.PN ---
Date of Service: 01/06/21 Subjective No new changes. Patient upset at current diet. Can advance this as tolerated. Review of Systems 10-point ROS is otherwise unremarkable Physical Examination - Vital Signs Reviewed - Physical Exam General: Alert, In no apparent distress, Confused Neck: Supple, Other (Tracheostomy-replace with 4 Turkmen trach) Respiratory: Other (Upper airway noise) Cardiovascular: Regular rate/rhythm, Normal S1 S2 Gastrointestinal: Normal bowel sounds, Soft and benign, Non-distended, No tende rness Neurological: Other (Generalized weakness) Assessment & Plan - Problems (Diagnosis) (1) Symptomatic anemia Current Visit: Yes Status: Acute (2) Hypercalcemia Current Visit: Yes Status: Acute (3) Altered mental status Current Visit: Yes Status: Acute (4) Metastatic head and neck cancer Current Visit: Yes Status: Acute (5) Generalized weakness Current Visit: Yes Status: Acute - Plan No new changes regarding plan of care as mentioned below. Awaiting placement at care home facility: 1. Calcium slowly correcting. Continue with current treatment with calcitonin; status post Aredia. Gentle hydration and Lasix 2. Hemoglobin has been stable; monitor H&H 3. Long-term prognosis is poor as patient is not deemed to get any more treatment for his cancer. Patient has a do not resuscitate. Does not want hospice and the family is unable to care for him so patient has agreed to a care home facility 4. Physical therapy evaluation; placement may be an issue as the sister does not want care for him at home because she is unable to any longer 5. GI and DVT prophylaxis Discharge Plan: [facility] Plan to discharge in: Greater than 2 days - Advance Directives Does patient have a Living Will: Yes Does patient have a Durable POA for Healthcare: No - Code Status/Comfort Care Code Status: Full Code Critical Care: No Time Spent Managing PTS Care (In Minutes): 35
[2021-01-07] MEDS: MORPHINE 2 MG/ML SYR IV PRN ×5 (02:14→19:38)
[2021-01-07] MEDS: NA CHLORIDE 0.9% 1,000 ML IV SCH ×3 (02:14→15:44)
[2021-01-07 07:08] LABS: BUN Blood Urea Nitrogen 18 mg/dL (7-18); Bicarbonate 24 mmol/L (21-32); Glucose Level 80 mg/dL (74-106); Lipase 115 U/L (73-393); Magnesium 2.5 mg/dL (1.8-2.4); NT PRO-BNP 1591 pg/mL (<125); Potassium 3.4 mmol/L (3.5-5.1); Sodium Level 139 mmol/L (136-145)
[2021-01-07 07:15] LABS: Absolute Lymphocytes (CBC) 0.7 K/uL (0.7-4.9); Basophils % 0.3 % (0-1.3); Hematocrit 23.6 % (39.6-49.0); Lymphocytes % 5.2 % (15.3-44.8); MPV 6.8 fL (7.6-11.3); RBC Red Blood Cell Count 3.17 M/uL (4.33-5.43)
[2021-01-07] MEDS: ENSURE ENLIVE 237 ML CAN PO SCH ×3 (09:56→21:46)
[2021-01-07] MEDS: CALCITONIN NASAL SPRAY 200 IU/DOSE NAS SCH (09:57)
[2021-01-07] MEDS: ACETAMINOPHEN 500 MG TAB PO PRN ×2 (12:05→21:57)
--- NOTE | 2021-01-07 16:19 | P.PN ---
Subjective Date of Service: 01/07/21 Chief Complaint: Shortness of breath Subjective: Other (Patient on room air.) Physical Examination - Vital Signs Temperature: 98.2 F Blood Pressure: 130/73 Pulse: 68 Respirations: 17 Pulse Ox (%): 99 - Studies Medications List Reviewed: Yes Assessment & Plan Discharge Plan: Long Term Plan to discharge in: 48 Hours Physician Review Additional Text: Physical Exam: GENERAL: Patient alert and cooperative. VITAL SIGNS: Reviewed HEENT: Neck supple. Trach in site LUNGS: Clear to auscultation. No crackles or wheezes are heard. HEART: Regular rate and rhythm, no appreciable gallops, rubs, murmurs or extra heart sounds ABDOMEN: Soft, nontender, and nondistended. Positive bowel sounds. No hepatosplenomegaly was noted. EXTREMITIES: Without any cyanosis, clubbing, rash, lesions or peripheral edema. NEUROLOGIC: The patient is oriented to person, place and time. Strength and sensation are grossly intact. Face is symmetric. SKIN: Normal color, turgor and temperature. No ulcerations or rashes noted. Impression: Symptomatic anemia Hypercalcemia History of metastatic head and neck cancer with trach Plan: No new changes regarding plan of care as mentioned below. Awaiting placement at alf facility: 1. Calcium has corrected. Discontinue calcitonin. Status post Aredia. Continue with IV fluids 2. Hemoglobin has been stable; monitor H&H. Maintain hemoglobin above 7.5. 3. Long-term prognosis is poor as patient is not deemed to get any more treatment for his cancer. Patient has a do not resuscitate. Does not want hospice and the family is unable to care for him so patient has agreed to a alf facility 4. Physical therapy evaluation; placement may be an issue as the sister does not want care for him at home because she is unable to any longer 5. GI and DVT prophylaxis Code Status: DO NOT RESUSCITATE DVT prophylaxis: SCD Advanced Care Planning-30 minutes: Continue to pursue long-term placement facility Time Spent Managing Pts Care (In Minutes): 55
[2021-01-07 18:15] LABS: Hematocrit 26.5 % (39.6-49.0)
[2021-01-07 19:48] LABS: Platelet Estimate ADEQ; White Blood Cell Scan OK (OK)
[2021-01-07 19:49] LABS: Blood Morphology Comment NOTED (NOT SEEN); Poikilocytosis 2+
[2021-01-07] MEDS: FAMOTIDINE 20 MG/2 ML VIAL IV SCH (21:46)
[2021-01-08] MEDS: NA CHLORIDE 0.9% 1,000 ML IV SCH ×3 (00:20→13:40)
[2021-01-08] MEDS: MORPHINE 2 MG/ML SYR IV PRN ×3 (00:41→09:59)
[2021-01-08] MEDS ORDERED: LORazepam 2 MG/ML VIAL IV ONE (03:31)
--- NOTE | 2021-01-08 06:26 | P.PN ---
Subjective Date of Service: 01/08/21 Chief Complaint: Shortness of breath Subjective: Other (Patient stable. Currently on room air) Physical Examination - Vital Signs Temperature: 97 F Blood Pressure: 140/83 Pulse: 73 Respirations: 18 Pulse Ox (%): 98 - Studies Medications List Reviewed: Yes Assessment & Plan Discharge Plan: Alf Plan to discharge in: 48 Hours - Code Status/Comfort Care Code Status Assessed: Yes Code Status: Do Not Attempt Resuscitat Physician Review Additional Text: Physical Exam: GENERAL: Patient alert and cooperative. VITAL SIGNS: Reviewed HEENT: Neck supple. Trach in site LUNGS: Clear to auscultation. No crackles or wheezes are heard. HEART: Regular rate and rhythm, no appreciable gallops, rubs, murmurs or extra heart sounds ABDOMEN: Soft, nontender, and nondistended. Positive bowel sounds. No hepatosplenomegaly was noted. EXTREMITIES: Without any cyanosis, clubbing, rash, lesions or peripheral edema. NEUROLOGIC: The patient is oriented to person, place and time. Strength and sensation are grossly intact. Face is symmetric. SKIN: Normal color, turgor and temperature. No ulcerations or rashes noted. Impression: Symptomatic anemia Hypercalcemia History of metastatic head and neck cancer with trach Plan: Patient stable at this time. Hemoglobin stable. Last hemoglobin 8.4. Discontinue IV fluids as the patient pulled out his IV access. Patient was seen and evaluated by ENT to upsize trach tube. ENT was ready to replace the trach. She reported that the patient appeared irritable. He said he was eating lunch. And did not want to have the trach replaced at that time. This was documented by ENT. 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 Patient with poor prognosis. We will continue with Pepcid, thiamine and folic acid. We will continue to pursue long-term care and likely hospice. Patient is DO NOT RESUSCITATE. Code Status: DO NOT RESUSCITATE DVT prophylaxis: SCD Advanced Care Planning-30 minutes: Continue to pursue long-term placement facility Time Spent Managing Pts Care (In Minutes): 55
[2021-01-08] MEDS: ENSURE ENLIVE 237 ML CAN PO SCH ×3 (09:00→21:24)
[2021-01-08] MEDS: FAMOTIDINE 20 MG/2 ML VIAL IV SCH (09:09)
--- NOTE | 2021-01-08 13:28 | P.CNS ---
Date of Consult: 01/08/21 I was called requesting an upsize of trach tube. Patient underwent Rapid Response recently and a 4 CFD/SINGLE CORNER CUTTER trach was placed. Patient complaining of difficulty breathing through the smaller tube and primary team is hopeful that a larger trach would be more comfortable. In care coordination with RT, it was reported that the patient is removing the inner canula which allows crusting to build up and obstruct the trach tube Review of outside records indicates presentation to [facility] with critical airway, not intubatable from above in March 2020. He underwent awake trach with biopsy confirming left base of tongue squamous cell carcinoma, p16 negative with clinical rajinder mets and possible lung lesions. He was presented at tumor board and staged as T4 N2c SCC and dispositioned to radiation and chemotherapy. No treatment records are located to indicate that he received any radiation or chemotherapy that I can determine. He was admitted to [facility] with a perforated duodenal ulcer in July 2020 and underwent a ex lap and patch/repair. Review of recent CT chest demonstrates massive tumor completely involving the BOT, oral tongue, destroying the hyoid bone, invading the thyroid cartilage, extending from the oral cavity to the neck spaces and extranodal extension. I personally retrieved a 6 CFS trach from [employer]. When I introduced myself and discussed changing the tracheotomy tube, the patient appeared irritated. He said he was eating lunch. I told him that I had come during my lunch hour to care for him and would not be able to return until after 5PM since I have clinic off site. He still did not want to have the trach change and asked that I return later. Based on the CT imaging, the tumor is significantly advanced from his prior presentation at [facility]. The tracheotomy tube is his only airway and there is no clinically feasible intubation from above. He prognosis is extremely poor from an oncologic standpoint. Hospice care would be appropriate though consideration for palliative XRT/chemotherapy could be considered.
[2021-01-08] MEDS: HYDROCODONE/APAP 7.5/325 MG TAB PO PRN ×2 (15:04→23:32)
[2021-01-08] MEDS ORDERED: CALCIUM CARBONATE CHEW 500MG TAB PO PRN (15:45)
[2021-01-08] MEDS ORDERED: PANTOPRAZOLE 40MG TABLET PO SCH (16:30)
[2021-01-08 16:46] LABS: Absolute Lymphocytes (CBC) 0.7 K/uL (0.7-4.9); Basophils % 0.4 % (0-1.3); Lymphocytes % 5.8 % (15.3-44.8); MPV 6.8 fL (7.6-11.3); RBC Red Blood Cell Count 3.12 M/uL (4.33-5.43)
[2021-01-08 17:18] LABS: ALT/SGPT 11 U/L (12-78); AST/SGOT 8 U/L (15-37); Alkaline Phosphatase 67 U/L (45-117); BUN Blood Urea Nitrogen 12 mg/dL (7-18); Bicarbonate 24 mmol/L (21-32); Bilirubin Total 0.2 mg/dL (0.2-1.0); Glucose Level 110 mg/dL (74-106); Magnesium 2.3 mg/dL (1.8-2.4); Potassium 3.6 mmol/L (3.5-5.1); Protein, Total 6.3 g/dL (6.4-8.2); Sodium Level 139 mmol/L (136-145)
[2021-01-08 17:27] LABS: Anisocytosis 3+; Blood Morphology Comment NOTED (NOT SEEN); Platelet Estimate ADEQ; White Blood Cell Scan OK (OK)
[2021-01-08] MEDS: Pantoprazole (granules) 40 MG/BLIST PACKET FT SCH (17:36)
[2021-01-08] MEDS ORDERED: ALPRAZOLAM 0.25 MG TABLET PO ONE (20:45)
[2021-01-08] MEDS ORDERED: FAMOTIDINE 20 MG TAB PO SCH (21:00)
--- NOTE | 2021-01-08 21:12 | PN ---
Date of Progress Note: 01/08/2021 Time Of Service: Approximately 06:30 to 8 p.m. I returned to the patient's bedside for performance of tracheostomy tube change. After written communication, interaction and negotiation, the patient was agreeable to the tracheostomy change. He was placed in a near supine position. He was noted to have very limited neck extension with bulky tumor encompassing the neck and precluding any meaningful palpation of normal anatomy. Tracheostomy tube in place was a cuffed 4.0 Shiley with the cuff deflated and inner cannula missing. The Velcro ties were loosened and with the aid of a headlight, the 4.0 tube was removed and a Shiley 6CFS was placed with ease through the tracheostomy site. During tracheostomy change, the area of the fistulous tract was noted to be somewhat granulated, but without specific polypoid granulation tissue. The tracheostomy tube was secured with Velcro ties, but the patient continued to have significant coughing with copious mucus coming from the nose and moderate thick mucus coming through the tracheostomy tube. The patient was noted to have inability to swallow his secretions and would suction his saliva with the Yankauer. He had subjective obstruction of the tracheostomy tube intermittently, which was worse with forceful coughing. The patient appeared stable overall and I briefly left the room to obtain appropriate equipment including a 4 mm flexible laryngoscope and light box. After flexible catheter suctioning of the tracheostomy tube, the scope was passed through the tube and used to visualize the trachea, which appeared moderately erythematous. There was no visible tracheal stenosis and no evidence of an obstructive lesion in regard to tissue or granulation. During coughing, a large mucus plug was seen coming from the bronchus and obstructing the lumen of the tube. Multiple attempts at suctioning to dislodge the mucus plug were made and unsuccessful. Eventually, the patient was able to forcefully cough and a 1.5 x 2 cm mucus plug was expectorated through the tracheostomy tube with inner cannula removed. After this, the patient's cough and sense of obstruction were resolved and he was amenable to placement of the inner cannula. We discussed the importance and the use of the inner cannula to provide the ability to easily remove and clear the tracheostomy tube and the importance of cleaning and then replacing the inner cannula in order to provide a safe airway. He was agreeable to leave the inner cannula in place for now. There was a very minimal amount of bleeding around the tracheostomy site, which was likely traumatic due to the trach tube change and severity of coughing. During the flexible tracheoscopy, there was no evidence of mucosal ulceration suggesting any sort of tracheoinnominate or tracheoesophageal fistula. The patient's overall prognosis remains very guarded in regard to the extent and size of his malignancy. I remain available for any future problems that arise and can be reached via cellphone or through my office. AGATHA Voice ID: [id number] Report ID: [id number] MTDD
[2021-01-08] MEDS: ACETAMINOPHEN 500 MG TAB PO PRN (21:23)
[2021-01-09 05:21] LABS: Absolute Lymphocytes (CBC) 0.9 K/uL (0.7-4.9); Basophils % 0.5 % (0-1.3); Hematocrit 22.1 % (39.6-49.0); Lymphocytes % 8.3 % (15.3-44.8); MPV 6.8 fL (7.6-11.3); RBC Red Blood Cell Count 2.99 M/uL (4.33-5.43)
[2021-01-09 05:55] LABS: ALT/SGPT 13 U/L (12-78); AST/SGOT 9 U/L (15-37); Albumin 1.9 g/dL (3.4-5.0); Alkaline Phosphatase 67 U/L (45-117); BUN Blood Urea Nitrogen 14 mg/dL (7-18); Bicarbonate 24 mmol/L (21-32); Bilirubin Total 0.1 mg/dL (0.2-1.0); Glucose Level 107 mg/dL (74-106); Magnesium 2.5 mg/dL (1.8-2.4); Potassium 3.5 mmol/L (3.5-5.1); Protein, Total 6.2 g/dL (6.4-8.2); Sodium Level 141 mmol/L (136-145)
--- NOTE | 2021-01-09 06:13 | P.PN ---
Subjective Date of Service: 01/09/21 Chief Complaint: Shortness of breath Subjective: Doing well Physical Examination - Vital Signs Temperature: 98.8 F Blood Pressure: 116/72 Pulse: 61 Respirations: 18 Pulse Ox (%): 100 - Studies Medications List Reviewed: Yes Assessment & Plan Discharge Plan: Assisted Plan to discharge in: 24 Hours Physician Review Additional Text: Physical Exam: GENERAL: Patient alert and cooperative. VITAL SIGNS: Reviewed HEENT: Neck supple. Trach in site LUNGS: Clear to auscultation. No crackles or wheezes are heard. HEART: Regular rate and rhythm, no appreciable gallops, rubs, murmurs or extra heart sounds ABDOMEN: Soft, nontender, and nondistended. Positive bowel sounds. No hepatosplenomegaly was noted. EXTREMITIES: Without any cyanosis, clubbing, rash, lesions or peripheral edema. NEUROLOGIC: The patient is oriented to person, place and time. Strength and sensation are grossly intact. Face is symmetric. SKIN: Normal color, turgor and temperature. No ulcerations or rashes noted. 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 Patient was seen and evaluated by ENT to upsize trach tube. ENT replaced trach tube. 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 Patient with poor prognosis. We will continue with Protonix, thiamine and folic acid. Xanax added for anxiety. We will continue to pursue long-term care and likely hospice. Patient is DO NOT RESUSCITATE. Code Status: DO NOT RESUSCITATE DVT prophylaxis: SCD Advanced Care Planning-30 minutes: Continue to pursue long-term placement facility Time Spent Managing Pts Care (In Minutes): 55
[2021-01-09] MEDS: HYDROCODONE/APAP 7.5/325 MG TAB PO PRN ×2 (08:23→14:36)
[2021-01-09] MEDS: THIAMINE HCL 100 MG TABLET PO SCH (08:24)
[2021-01-09] MEDS: ENSURE ENLIVE 237 ML CAN PO SCH ×3 (08:24→19:57)
[2021-01-09] MEDS: Pantoprazole (granules) 40 MG/BLIST PACKET FT SCH ×2 (08:24→16:48)
[2021-01-09] MEDS: FOLIC ACID 1 MG TABLET PO SCH (08:24)
[2021-01-09] MEDS: ALPRAZOLAM 0.5 MG TABLET PO PRN ×2 (14:37→23:49)
[2021-01-09] MEDS: ACETAMINOPHEN 500 MG TAB PO PRN (19:55)
[2021-01-09] MEDS: FERROUS SULFATE 325 MG TAB PO SCH (19:56)
[2021-01-09] MEDS ORDERED: FAMOTIDINE 20 MG TAB PO ONE (20:45)
[2021-01-09] MEDS ORDERED: MORPHINE 2 MG/ML SYR IV ONE (23:00)
[2021-01-09] MEDS ORDERED: MORPHINE 2 MG/ML SYR IM ONE (23:23)
[2021-01-10] MEDS: HYDROCODONE/APAP 7.5/325 MG TAB PO PRN ×2 (01:25→11:29)
[2021-01-10 05:49] LABS: Absolute Lymphocytes (CBC) 0.9 K/uL (0.7-4.9); Basophils % 0.5 % (0-1.3); Hematocrit 21.2 % (39.6-49.0); Lymphocytes % 8.9 % (15.3-44.8); RBC Red Blood Cell Count 2.88 M/uL (4.33-5.43)
--- NOTE | 2021-01-10 05:58 | P.PN ---
Subjective Date of Service: 01/10/21 Chief Complaint: Shortness of breath Subjective: Doing well Physical Examination - Vital Signs Temperature: 98.1 F Blood Pressure: 109/68 Pulse: 69 Respirations: 16 Pulse Ox (%): 100 - Studies Medications List Reviewed: Yes Assessment & Plan Discharge Plan: Half-Way Plan to discharge in: 24 Hours Physician Review Additional Text: Physical Exam: GENERAL: Patient alert and cooperative. VITAL SIGNS: Reviewed HEENT: Neck supple. Trach in site LUNGS: Clear to auscultation. No crackles or wheezes are heard. HEART: Regular rate and rhythm, no appreciable gallops, rubs, murmurs or extra heart sounds ABDOMEN: Soft, nontender, and nondistended. Positive bowel sounds. No hepatosplenomegaly was noted. EXTREMITIES: Without any cyanosis, clubbing, rash, lesions or peripheral edema. NEUROLOGIC: The patient is oriented to person, place and time. Strength and sensation are grossly intact. Face is symmetric. SKIN: Normal color, turgor and temperature. No ulcerations or rashes noted. 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 Will transfuse 2 units of blood. Maintain hemoglobin above 8.0. Patient overall stable. ENT replaced trach tube. 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 Patient with poor prognosis. We will continue with Protonix, thiamine and folic acid. Xanax added for anxiety. Will increase pain medication for better control. We will continue to pursue long-term care and likely hospice. Patient is DO NOT RESUSCITATE. Code Status: DO NOT RESUSCITATE DVT prophylaxis: SCD Advanced Care Planning-30 minutes: Continue to pursue long-term placement facility Time Spent Managing Pts Care (In Minutes): 55
[2021-01-10 06:00] LABS: ALT/SGPT 13 U/L (12-78); AST/SGOT 9 U/L (15-37); Albumin 1.9 g/dL (3.4-5.0); Alkaline Phosphatase 63 U/L (45-117); BUN Blood Urea Nitrogen 14 mg/dL (7-18); Bicarbonate 25 mmol/L (21-32); Bilirubin Total 0.1 mg/dL (0.2-1.0); Glucose Level 94 mg/dL (74-106); Magnesium 2.5 mg/dL (1.8-2.4); Potassium 3.5 mmol/L (3.5-5.1); Sodium Level 140 mmol/L (136-145)
[2021-01-10] MEDS: ACETAMINOPHEN 500 MG TAB PO PRN ×2 (06:39→17:30)
[2021-01-10] MEDS: FERROUS SULFATE 325 MG TAB PO SCH ×2 (08:29→20:47)
[2021-01-10] MEDS: FOLIC ACID 1 MG TABLET PO SCH (08:29)
[2021-01-10] MEDS: THIAMINE HCL 100 MG TABLET PO SCH (08:29)
[2021-01-10] MEDS: Pantoprazole (granules) 40 MG/BLIST PACKET FT SCH ×2 (08:30→15:32)
[2021-01-10] MEDS: ENSURE ENLIVE 237 ML CAN PO SCH ×3 (08:32→20:46)
[2021-01-10] MEDS ORDERED: FUROSEMIDE 20 MG/ 2ML VIAL IV ONE (08:57)
[2021-01-10] MEDS ORDERED: NA CHLORIDE 0.9% 250 ML ONE (10:52)
[2021-01-10] MEDS ORDERED: HYDROCODONE/APAP 10/325 TAB PO PRN (13:35)
[2021-01-10] MEDS: TRAMADOL HCL 50 MG TAB PO PRN ×2 (13:56→23:36)
[2021-01-10] MEDS: ALPRAZOLAM 0.5 MG TABLET PO PRN (15:29)
[2021-01-10 17:44] LABS: Hematocrit 33.4 % (39.6-49.0)
[2021-01-10] MEDS: ALPRAZOLAM 0.5 MG TABLET PO SCH (20:45)
[2021-01-10] MEDS ORDERED: HYDROCODONE/APAP 10/325 TAB PO SCH (21:00)
[2021-01-11] MEDS: ACETAMINOPHEN 500 MG TAB PO PRN ×2 (02:11→11:38)
--- NOTE | 2021-01-11 06:03 | P.PN ---
Subjective Date of Service: 01/11/21 Chief Complaint: Shortness of breath Subjective: Improving, Doing well Physical Examination - Vital Signs Temperature: 97.6 F Blood Pressure: 104/64 Pulse: 67 Respirations: 20 Pulse Ox (%): 96 - Studies Medications List Reviewed: Yes Assessment & Plan Discharge Plan: [facility] Plan to discharge in: 24 Hours Physician Review Additional Text: Physical Exam: GENERAL: Patient alert and cooperative. VITAL SIGNS: Reviewed HEENT: Neck supple. Trach in site LUNGS: Clear to auscultation. No crackles or wheezes are heard. HEART: Regular rate and rhythm, no appreciable gallops, rubs, murmurs or extra heart sounds ABDOMEN: Soft, nontender, and nondistended. Positive bowel sounds. No hepatosplenomegaly was noted. EXTREMITIES: Without any cyanosis, clubbing, rash, lesions or peripheral edema. NEUROLOGIC: The patient is oriented to person, place and time. Strength and sensation are grossly intact. Face is symmetric. SKIN: Normal color, turgor and temperature. No ulcerations or rashes noted. 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 Hemoglobin stable at this time. Case discussed at length with ENT concerning patient. His trach tube was replaced the other day. Patient remains with poor prognosis. Patient with extensive left base of tongue squamous cell carcinoma with mets. Patient remains on Protonix 40 mg 1 pill twice daily, thiamine 100 mg daily, folic acid 1 mg daily. Patient needs to have prescription strength Protonix 40 mg 1 pill twice daily for his GERD. Patient will continue with current pain medication as scheduled. Patient will continue with current medication for anxiety as scheduled. Will add a scopolamine patch every 72 hours as recommended by ENT. This will be a scheduled medication to help with secretions. Will continue to pursue long-term care and likely hospice. Patient is DO NOT RESUSCITATE. Code Status: DO NOT RESUSCITATE DVT prophylaxis: SCD Advanced Care Planning-30 minutes: Continue to pursue long-term placement facility Time Spent Managing Pts Care (In Minutes): 55
[2021-01-11 07:41] LABS: Absolute Lymphocytes (CBC) 0.8 K/uL (0.7-4.9); Basophils % 0.5 % (0-1.3); Hematocrit 29.6 % (39.6-49.0); Lymphocytes % 5.7 % (15.3-44.8); MPV 6.5 fL (7.6-11.3); RBC Red Blood Cell Count 3.92 M/uL (4.33-5.43)
[2021-01-11] MEDS: ENSURE ENLIVE 237 ML CAN PO SCH ×4 (09:00→22:09)
[2021-01-11] MEDS: Pantoprazole (granules) 40 MG/BLIST PACKET FT SCH ×2 (09:24→15:30)
[2021-01-11] MEDS: FOLIC ACID 1 MG TABLET PO SCH (09:25)
[2021-01-11] MEDS: HYDROCODONE/APAP 10/325 TAB PO SCH ×3 (09:25→20:10)
[2021-01-11] MEDS: FERROUS SULFATE 325 MG TAB PO SCH ×2 (09:25→20:11)
[2021-01-11] MEDS: THIAMINE HCL 100 MG TABLET PO SCH (09:25)
[2021-01-11] MEDS: SCOPOLAMINE HYDROBROMIDE PATCH TD SCH (11:38)
[2021-01-11] MEDS: ALPRAZOLAM 0.5 MG TABLET PO SCH (20:10)
[2021-01-11] MEDS: TRAMADOL HCL 50 MG TAB PO PRN (23:23)
[2021-01-12] MEDS: ACETAMINOPHEN 500 MG TAB PO PRN ×2 (03:28→09:38)
--- NOTE | 2021-01-12 06:09 | P.PN ---
Subjective Date of Service: 01/12/21 Chief Complaint: Shortness of breath Physical Examination - Vital Signs Temperature: 98.1 F Blood Pressure: 97/61 Pulse: 58 Respirations: 19 Pulse Ox (%): 92 - Studies Medications List Reviewed: Yes Assessment & Plan Physician Review Additional Text: Physical Exam: GENERAL: Patient alert and cooperative. VITAL SIGNS: Reviewed HEENT: Neck supple. Trach in site LUNGS: Clear to auscultation. No crackles or wheezes are heard. HEART: Regular rate and rhythm, no appreciable gallops, rubs, murmurs or extra heart sounds ABDOMEN: Soft, nontender, and nondistended. Positive bowel sounds. No hepatosplenomegaly was noted. EXTREMITIES: Without any cyanosis, clubbing, rash, lesions or peripheral edema. NEUROLOGIC: The patient is oriented to person, place and time. Strength and sensation are grossly intact. Face is symmetric. SKIN: Normal color, turgor and temperature. No ulcerations or rashes noted. 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 Hemoglobin stable at this time. Case discussed at length with ENT concerning patient. His trach tube was replaced the other day. Patient remains with poor prognosis. Patient with extensive left base of tongue squamous cell carcinoma with mets. Patient remains on Protonix 40 mg 1 pill twice daily, thiamine 100 mg daily, folic acid 1 mg daily. Patient needs to have prescription strength Protonix 40 mg 1 pill twice daily for his GERD. Patient will continue with current pain medication as scheduled. Patient will continue with current medication for anxiety as scheduled. Will add a scopolamine patch every 72 hours as recommended by ENT. This will be a scheduled medication to help with secretions. Will continue to pursue long-term care and likely hospice. Patient is DO NOT RESUSCITATE. Code Status: DO NOT RESUSCITATE DVT prophylaxis: SCD Advanced Care Planning-30 minutes: Continue to pursue long-term placement facility
[2021-01-12] MEDS: Pantoprazole (granules) 40 MG/BLIST PACKET FT SCH ×2 (07:30→16:30)
[2021-01-12] MEDS: ENSURE ENLIVE 237 ML CAN PO SCH ×3 (09:00→21:00)
[2021-01-12] MEDS: THIAMINE HCL 100 MG TABLET PO SCH (09:00)
[2021-01-12] MEDS: HYDROCODONE/APAP 10/325 TAB PO SCH ×3 (09:00→23:30)
[2021-01-12] MEDS: FOLIC ACID 1 MG TABLET PO SCH (09:00)
[2021-01-12] MEDS: FERROUS SULFATE 325 MG TAB PO SCH ×2 (09:00→21:39)
[2021-01-12] MEDS: TRAMADOL HCL 50 MG TAB PO PRN (09:31)
[2021-01-12] MEDS: ALPRAZOLAM 0.5 MG TABLET PO SCH (21:40)
[2021-01-13] MEDS: TRAMADOL HCL 50 MG TAB PO PRN ×2 (02:15→10:15)
[2021-01-13] MEDS: ACETAMINOPHEN 500 MG TAB PO PRN (04:10)
--- NOTE | 2021-01-13 06:01 | P.PN ---
Subjective Date of Service: 01/13/21 Chief Complaint: Shortness of breath Subjective: Other (Patient desires something for insomnia. Patient also requesting medication for depression.) Physical Examination - Vital Signs Temperature: 98.3 F Blood Pressure: 118/65 Pulse: 55 Respirations: 19 Pulse Ox (%): 94 - Studies Medications List Reviewed: Yes Assessment & Plan Discharge Plan: [facility] Plan to discharge in: 48 Hours Physician Review Additional Text: Physical Exam: GENERAL: Patient alert and cooperative. VITAL SIGNS: Reviewed HEENT: Neck supple. Trach in site LUNGS: Clear to auscultation. No crackles or wheezes are heard. HEART: Regular rate and rhythm, no appreciable gallops, rubs, murmurs or extra heart sounds ABDOMEN: Soft, nontender, and nondistended. Positive bowel sounds. No hepatosplenomegaly was noted. EXTREMITIES: Without any cyanosis, clubbing, rash, lesions or peripheral edema. NEUROLOGIC: The patient is oriented to person, place and time. Strength and sensation are grossly intact. Face is symmetric. SKIN: Normal color, turgor and temperature. No ulcerations or rashes noted. 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 Maintain hemoglobin above 8.0. Overall stable. Patient desires medication for depression with anxiety and insomnia. Will start Celexa 10 mg daily. We will also start melatonin at night. Case discussed at length with ENT concerning patient. His trach tube was replaced the other day. Patient remains with poor prognosis. Patient with extensive left base of tongue squamous cell carcinoma with mets. Patient remains on Protonix 40 mg 1 pill twice daily, thiamine 100 mg daily, folic acid 1 mg daily. Patient needs to have prescription strength Protonix 40 mg 1 pill twice daily for his GERD. Patient will continue with current pain medication as scheduled. Patient will continue with current medication for anxiety as scheduled. Patient also on scopolamine patch every 72 hours as recommended by ENT. This will be a scheduled medication to help with secretions. Will continue to pursue long-term care and likely hospice. Patient is DO NOT RESUSCITATE. Will turn to service over to the hospitalist team tomorrow. I will go plan of care with him. Code Status: DO NOT RESUSCITATE DVT prophylaxis: SCD Advanced Care Planning-30 minutes: Continue to pursue long-term placement facility Time Spent Managing Pts Care (In Minutes): 55
[2021-01-13 06:20] LABS: Absolute Lymphocytes (CBC) 0.9 K/uL (0.7-4.9); Basophils % 0.4 % (0-1.3); Lymphocytes % 6.9 % (15.3-44.8); MPV 7.1 fL (7.6-11.3); RBC Red Blood Cell Count 3.78 M/uL (4.33-5.43)
[2021-01-13] MEDS: Pantoprazole (granules) 40 MG/BLIST PACKET FT SCH ×2 (07:30→16:30)
[2021-01-13] MEDS: ENSURE ENLIVE 237 ML CAN PO SCH ×3 (09:00→21:00)
[2021-01-13] MEDS: FOLIC ACID 1 MG TABLET PO SCH (09:00)
[2021-01-13] MEDS: FERROUS SULFATE 325 MG TAB PO SCH ×2 (09:00→21:22)
[2021-01-13] MEDS: THIAMINE HCL 100 MG TABLET PO SCH (09:00)
[2021-01-13] MEDS: HYDROCODONE/APAP 10/325 TAB PO SCH ×3 (09:00→21:23)
[2021-01-13 11:32] LABS: Anisocytosis 2+; Blood Morphology Comment NOTED (NOT SEEN); Platelet Estimate ADEQ; White Blood Cell Scan OK (OK)
[2021-01-13] MEDS: CITALOPRAM 10 MG TABLET PO SCH (17:00)
[2021-01-13] MEDS: MELATONIN 5 MG TABLET PO SCH (21:22)
[2021-01-13] MEDS: ALPRAZOLAM 0.5 MG TABLET PO SCH (22:52)
[2021-01-14] MEDS: TRAMADOL HCL 50 MG TAB PO PRN ×2 (02:31→16:59)
[2021-01-14] MEDS: ACETAMINOPHEN 500 MG TAB PO PRN ×2 (05:53→13:59)
[2021-01-14 05:58] LABS: Absolute Lymphocytes (CBC) 0.8 K/uL (0.7-4.9); Basophils % 0.5 % (0-1.3); Hematocrit 28.5 % (39.6-49.0); Lymphocytes % 6.1 % (15.3-44.8); MPV 6.6 fL (7.6-11.3); RBC Red Blood Cell Count 3.74 M/uL (4.33-5.43)
[2021-01-14] MEDS: Pantoprazole (granules) 40 MG/BLIST PACKET FT SCH ×3 (07:30→16:30)
[2021-01-14] MEDS: ENSURE ENLIVE 237 ML CAN PO SCH ×3 (09:00→19:43)
[2021-01-14] MEDS: CITALOPRAM 10 MG TABLET PO SCH (09:00)
[2021-01-14] MEDS: FERROUS SULFATE 325 MG TAB PO SCH ×2 (09:00→20:07)
[2021-01-14] MEDS: FOLIC ACID 1 MG TABLET PO SCH (09:00)
[2021-01-14] MEDS: THIAMINE HCL 100 MG TABLET PO SCH (09:00)
[2021-01-14] MEDS: HYDROCODONE/APAP 10/325 TAB PO SCH ×3 (09:00→20:06)
[2021-01-14] MEDS: SCOPOLAMINE HYDROBROMIDE PATCH TD SCH (09:00)
--- NOTE | 2021-01-14 14:43 | P.PN ---
Subjective Date of Service: 01/14/21 Patient is clinically doing well with no new complaints. Tracheostomy has been performed. Patient clinical condition is stable. Awaiting transfer to [facility] facility Review of Systems 10-point ROS is otherwise unremarkable Physical Examination - Vital Signs Temperature: 98.3 F Blood Pressure: 113/69 Pulse: 57 Respirations: 17 Pulse Ox (%): 100 - Physical Exam General: Alert, In no apparent distress, Oriented x3 Respiratory: Clear to auscultation bilaterally, Normal air movement Cardiovascular: Regular rate/rhythm, Normal S1 S2, No murmurs Gastrointestinal: Normal bowel sounds, Soft and benign, Non-distended, No tenderness Musculoskeletal: No clubbing, No swelling, No tenderness Neurological: Normal strength at 5/5 x4 extr, Cranial nerves 3-12 intact - Studies Medications List Reviewed: Yes Assessment & Plan - Problems (Diagnosis) (1) Symptomatic anemia Current Visit: Yes Status: Acute (2) Hypercalcemia Current Visit: Yes Status: Acute (3) Altered mental status Current Visit: Yes Status: Acute (4) Head and neck cancer Current Visit: Yes Status: Acute - Plan Plan: 1. Continue monitoring calcium levels; continue calcitonin 2. Monitor H&H 3. Physical therapy as an outpatient 4. Arrange for hospice patient 5. Continue monitoring renal function 6. GI and DVT prophylaxis Discharge Plan: Home Plan to discharge in: Greater than 2 days - Advance Directives Does patient have a Living Will: No Does patient have a Durable POA for Healthcare: No - Code Status/Comfort Care Code Status: Do Not Attempt Resuscitat Critical Care: No Time Spent Managing PTS Care (In Minutes): 30
[2021-01-14] MEDS: MELATONIN 5 MG TABLET PO SCH (20:07)
[2021-01-14] MEDS: ALPRAZOLAM 0.5 MG TABLET PO SCH (21:22)
[2021-01-15] MEDS: TRAMADOL HCL 50 MG TAB PO PRN ×2 (00:21→15:46)
[2021-01-15] MEDS: ACETAMINOPHEN 500 MG TAB PO PRN ×2 (04:07→14:33)
[2021-01-15 06:42] LABS: Absolute Lymphocytes (CBC) 0.8 K/uL (0.7-4.9); Basophils % 0.7 % (0-1.3); Hematocrit 28.7 % (39.6-49.0); Lymphocytes % 5.3 % (15.3-44.8); MPV 6.8 fL (7.6-11.3); RBC Red Blood Cell Count 3.75 M/uL (4.33-5.43)
[2021-01-15 06:49] LABS: BUN Blood Urea Nitrogen 12 mg/dL (7-18); Bicarbonate 28 mmol/L (21-32); Glucose Level 105 mg/dL (74-106); Magnesium 2.1 mg/dL (1.8-2.4); Potassium 4.3 mmol/L (3.5-5.1); Sodium Level 140 mmol/L (136-145)
[2021-01-15] MEDS: Pantoprazole (granules) 40 MG/BLIST PACKET FT SCH ×2 (07:30→15:51)
[2021-01-15] MEDS: ENSURE ENLIVE 237 ML CAN PO SCH ×3 (08:02→20:26)
[2021-01-15] MEDS: FOLIC ACID 1 MG TABLET PO SCH (08:04)
[2021-01-15] MEDS: CITALOPRAM 10 MG TABLET PO SCH (08:04)
[2021-01-15] MEDS: FERROUS SULFATE 325 MG TAB PO SCH ×2 (08:04→20:29)
[2021-01-15] MEDS: THIAMINE HCL 100 MG TABLET PO SCH (08:05)
[2021-01-15] MEDS: HYDROCODONE/APAP 10/325 TAB PO SCH ×3 (08:05→20:29)
[2021-01-15 09:12] LABS: Anisocytosis 1+; Blood Morphology Comment NOTED (NOT SEEN); Platelet Estimate ADEQ; Rouleau SLIGHT; White Blood Cell Scan OK (OK)
[2021-01-15] MEDS: MELATONIN 5 MG TABLET PO SCH (20:29)
[2021-01-16] MEDS: ALPRAZOLAM 0.5 MG TABLET PO SCH ×2 (00:08→21:00)
[2021-01-16] MEDS: ACETAMINOPHEN 500 MG TAB PO PRN (00:08)
[2021-01-16] MEDS: TRAMADOL HCL 50 MG TAB PO PRN (03:39)
[2021-01-16] MEDS: ENSURE ENLIVE 237 ML CAN PO SCH ×4 (09:00→21:00)
[2021-01-16] MEDS: HYDROCODONE/APAP 10/325 TAB PO SCH ×3 (09:13→21:00)
[2021-01-16] MEDS: THIAMINE HCL 100 MG TABLET PO SCH (09:13)
[2021-01-16] MEDS: FOLIC ACID 1 MG TABLET PO SCH (09:13)
[2021-01-16] MEDS: FERROUS SULFATE 325 MG TAB PO SCH ×2 (09:13→21:00)
[2021-01-16] MEDS: Pantoprazole (granules) 40 MG/BLIST PACKET FT SCH ×2 (09:14→17:14)
[2021-01-16] MEDS: CITALOPRAM 10 MG TABLET PO SCH (09:14)
[2021-01-16] MEDS ORDERED: FUROSEMIDE 40 MG TABLET PO ONE (11:15)
[2021-01-16] MEDS ORDERED: NA CHLORIDE 0.9% 1,000 ML IV ONE (11:16)
[2021-01-16] MEDS: CALCITONIN NASAL SPRAY 200 IU/DOSE NAS SCH ×2 (12:51→21:00)
[2021-01-16] MEDS: MELATONIN 5 MG TABLET PO SCH (21:00)
[2021-01-17 08:22] VITALS: BP 116/67; TEMP 98.3
[2021-01-17] MEDS ORDERED: PAMIDRONATE DISOD 30 MG VIAL IV ONE (08:55)
--- NOTE | 2021-01-17 08:57 | P.PN ---
Date of Service: 01/15/21 Subjective Patient waiting for placement at this time; otherwise doing well with no new complaints Review of Systems 10-point ROS is otherwise unremarkable Physical Examination - Vital Signs Reviewed - Physical Exam General: Alert, In no apparent distress, Confused Neck: Supple, Other (Tracheostomy-replace with 4 [place] trach) Respiratory: Other (Upper airway noise) Cardiovascular: Regular rate/rhythm, Normal S1 S2 Gastrointestinal: Normal bowel sounds, Soft and benign, Non-distended, No tenderness Neurological: Other (Generalized weakness) Assessment & Plan - Problems (Diagnosis) (1) Symptomatic anemia Current Visit: Yes Status: Acute (2) Hypercalcemia Current Visit: Yes Status: Acute (3) Altered mental status Current Visit: Yes Status: Acute (4) Metastatic head and neck cancer Current Visit: Yes Status: Acute (5) Generalized weakness Current Visit: Yes Status: Acute - Plan No new changes regarding plan of care as mentioned below. Awaiting placement at intermediate facility: 1. Calcium slowly correcting. Repeat calcium levels 2. Continue supportive care and trach care at bedside 3. Continue with current plan of care at this time 4. Physical therapy evaluation; placement may be an issue as the sister does not want care for him at home because she is unable to any longer 5. GI and DVT prophylaxis Discharge Plan: Long Term Plan to discharge in: Greater than 2 days - Advance Directives Does patient have a Living Will: Yes Does patient have a Durable POA for Healthcare: No - Code Status/Comfort Care Code Status: Full Code Critical Care: No Time Spent Managing PTS Care (In Minutes): 35
--- NOTE | 2021-01-17 08:58 | P.PN ---
Date of Service: 01/16/21 Subjective Patient denies any new complaints. Calcium was elevated and restarted calcitonin and an gave Lasix per and IV fluids. Will go ahead and recheck in the morning Review of Systems 10-point ROS is otherwise unremarkable Physical Examination - Vital Signs Reviewed - Physical Exam General: Alert, In no apparent distress Neck: Supple, Other (Tracheostomy-replace with 6 [place] trach) Respiratory: Clear bilaterally Cardiovascular: Regular rate/rhythm, Normal S1 S2 Gastrointestinal: Normal bowel sounds, Soft and benign, Non-distended, No tenderness Neurological: Other (Generalized weakness) Assessment & Plan - Problems (Diagnosis) (1) Symptomatic anemia Current Visit: Yes Status: Acute (2) Hypercalcemia Current Visit: Yes Status: Acute (3) Altered mental status Current Visit: Yes Status: Acute (4) Metastatic head and neck cancer Current Visit: Yes Status: Acute (5) Generalized weakness Current Visit: Yes Status: Acute - Plan No new changes regarding plan of care as mentioned below. Awaiting placement at retirement facility: 1. Calcium slowly correcting. Repeat calcium levels 2. Continue supportive care and trach care at bedside 3. Continue with current plan of care at this time 4. Physical therapy evaluation; placement may be an issue as the sister does not want care for him at home because she is unable to any longer 5. GI and DVT prophylaxis Discharge Plan: Prison Plan to discharge in: Greater than 2 days - Advance Directives Does patient have a Living Will: Yes Does patient have a Durable POA for Healthcare: No - Code Status/Comfort Care Code Status: Full Code Critical Care: No Time Spent Managing PTS Care (In Minutes): 35
[2021-01-17] MEDS: ENSURE ENLIVE 237 ML CAN PO SCH (09:00)
[2021-01-17] MEDS: SCOPOLAMINE HYDROBROMIDE PATCH TD SCH (09:58)
[2021-01-17] MEDS ORDERED: PAMIDRONATE 90 MG in NA CHLORIDE 0.9% 250 ML IV ONE (10:00)
[2021-01-17] MEDS: CALCITONIN NASAL SPRAY 200 IU/DOSE NAS SCH (10:01)
[2021-01-17] MEDS: Pantoprazole (granules) 40 MG/BLIST PACKET FT SCH (10:01)
[2021-01-17] MEDS: HYDROCODONE/APAP 10/325 TAB PO SCH (10:02)
[2021-01-17] MEDS: FERROUS SULFATE 325 MG TAB PO SCH (10:02)
[2021-01-17] MEDS: THIAMINE HCL 100 MG TABLET PO SCH (10:02)
[2021-01-17] MEDS: FOLIC ACID 1 MG TABLET PO SCH (10:02)
[2021-01-17] MEDS: CITALOPRAM 10 MG TABLET PO SCH (10:02)
[2021-01-17 12:18] VITALS: O2SAT 97
--- NOTE | 2021-01-21 01:58 | P.DS ---
Discharge Date: 01/17/21 Disposition: TRANSFER TO ALF Discharge Condition: GOOD Reason for Admission: Shortness of breath - Problems (1) Symptomatic anemia Status: Acute (2) Hypercalcemia Status: Acute (3) Altered mental status Status: Acute (4) Head and neck cancer Status: Acute Brief History of Present Illness: Patient is a 55-year-old gentleman who came to the hospital this morning with difficulty breathing. He was seen by the ER physician and workup revealed se enmanuel anemia with a hemoglobin of 6.0 and hypercalcemia. Patient's calcium was 14. Patient has history of head and neck cancer. I do not know the pathology. Most of his workup was done at [facility] and he has a tracheostomy as well as a PEG tube. Patient does not take any calcium supplements. Most likely related to parathyroid related peptide secretion from his malignancy. Will try to get his records faxed over from [facility]. Patient communicates only by writing. He looks like he gets frustrated quite easily. Were going to go ahead and admit him and transfuse 2 units of packed red blood cells. Will also start him on pamidronate to correct his hypercalcemia. Patient lives with his sister who states she is no longer able to care for him. Will discuss with patient regarding hospice care as he does have metastatic lesions on his CT imaging. The sister his wanting patient to proceed with hospice but he is able to make his own decisions so will discuss this with him prior to initiating anything. Anticipate discharge over the next 48-72 hr. Hospital Course: Patient was treated for the hypercalcemia. Patient clinical picture has improved. Patient also had pain controlled. During patient's hospitalization trach required correction. Patient had trach switched over. At this time, patient is clinically doing well and is stable for discharge to [facility]. Vital Signs/Physical Exam: Temp Pulse Resp BP Pulse Ox 98.3 F 54 16 116/67 97 01/17/21 08:00 01/17/21 08:00 01/17/21 10:02 01/17/21 08:00 01/17/21 10:02 General: Alert, In no apparent distress, Oriented x3 Laboratory Data at Discharge: WBC 14.70 K/uL (4.3-10.9) H 01/15/21 05:59 Hgb 9.4 g/dL (13.6-17.9) L 01/15/21 05:59 Hct 28.7 % (39.6-49.0) L 01/15/21 05:59 Plt Count 393 K/uL (152-406) 01/15/21 05:59 PT 14.9 SECONDS (9.5-12.5) H 01/02/21 04:42 INR 1.29 01/02/21 04:42 Sodium 140 mmol/L (136-145) 01/15/21 05:59 Potassium 4.3 mmol/L (3.5-5.1) 01/15/21 05:59 BUN 12 mg/dL (7-18) 01/15/21 05:59 Creatinine 0.80 mg/dL (0.55-1.3) 01/15/21 05:59 Glucose 105 mg/dL (74-106) 01/15/21 05:59 Phosphorus 4.8 mg/dL (2.5-4.9) 01/05/21 12:03 Magnesium 2.1 mg/dL (1.8-2.4) 01/15/21 05:59 Total Bilirubin 0.1 mg/dL (0.2-1.0) L 01/10/21 05:04 AST 9 U/L (15-37) L 01/10/21 05:04 ALT 13 U/L (12-78) 01/10/21 05:04 Alkaline Phosphatase 63 U/L (45-117) 01/10/21 05:04 Lipase 115 U/L (73-393) 01/07/21 06:22 Home Medications: Lactose-Reduced Food [Ensure High Protein] 237 ml PO TID 01/06/21 ALPRAZolam [Xanax*] 0.5 mg PO BEDTIME PRN #20 tab 01/16/21 Calcitonin [Miacalcin Nasal [place]*] 1 sprays MICHOACANO BID #1 spray.pump 01/16/21 Citalopram [Celexa*] 10 mg PO DAILY #30 tablet 01/16/21 Ensure Enlive 237 ml PO TID #90 can 01/16/21 Hydrocodone 7.5/APAP 325 [[place] 7.5/325 mg] 1 tab PO Q6H PRN #30 tab 01/16/21 Melatonin 5 mg PO BEDTIME #20 tablet 01/16/21 New Medications: Citalopram [Celexa*] 10 mg PO DAILY #30 tablet Ensure Enlive 237 ml PO TID #90 can Melatonin 5 mg PO BEDTIME #20 tablet Calcitonin [Miacalcin Nasal [place]*] 1 sprays MICHOACANO BID #1 spray.pump Hydrocodone 7.5/APAP 325 [[place] 7.5/325 mg] 1 tab PO Q6H PRN #30 tab PRN Reason: Pain ALPRAZolam [Xanax*] 0.5 mg PO BEDTIME PRN #20 tab PRN Reason: Anxiety Physician Discharge Instructions: PROBLEM: Anemia, Hypercalcemia GOAL: Clear understanding of disease process INSTRUCTIONS: OK TO DC IV AND DC HOME FOLLOW-UP WITH PRIMARY CARE PROVIDER IN 1-2 WEEKS FOLLOW-UP WITH Oncologist IN 1-2 WEEKS RETURN TO THE ER IF symptoms worsen CALL or TEXT DR. SANABRIA AT [phone] IF ANY QUESTIONS REGARDING HOSPITAL STAY. PLEASE CALL THE FLOOR AT [phone] IF ANY MEDICATION OR NURSING QUESTIONS. Diet: heart healthy Activity: Fall precautions COMMUNITY SERVICES Services Needed: [facility] Name of Company: [employer] [phone] Date or Referral: 01/10/21 Diet: AHA Activity: Fall precautions Followup: Unknown,U [Primary Care Provider] - Time spent managing pt's care (in minutes): 35
== END 2021-01-17 12:00 | DRG 812 ==
LOC: ER 01:49 → ERHOLD 10:59 → 2ND 20:48 → OBSVTOIN 01-03 07:17
PROVIDERS: ADMIT Hospitalist; ATTEND Hospitalist
PROC: 30233N1 Transfusion of Nonautologous Red Blood Cells into Peripheral Vein, Percutaneous Approach (ICD-10-PCS; principal; 2021-01-02)
PROC: 0B21XFZ Change Tracheostomy Device in Trachea, External Approach (ICD-10-PCS; 2021-01-08)
DX: D64.9 Anemia, unspecified (principal); C78.39 Secondary malignant neoplasm of other respiratory organs; C79.51 Secondary malignant neoplasm of bone; E46 Unspecified protein-calorie malnutrition; Z68.1 Body mass index [BMI] 19.9 or less, adult; J95.03 Malfunction of tracheostomy stoma; E83.52 Hypercalcemia; R41.82 Altered mental status, unspecified; C01 Malignant neoplasm of base of tongue; G47.00 Insomnia, unspecified; F41.8 Other specified anxiety disorders; G89.3 Neoplasm related pain (acute) (chronic); R53.1 Weakness; K21.9 Gastro-esophageal reflux disease without esophagitis; Z66 Do not resuscitate; Z93.1 Gastrostomy status; Z20.822 Contact with and (suspected) exposure to COVID-19
CPT/HCPCS: 36415; 36430; 70450; 71045; 71275; 74177; 80048; 80053; 80076; 81003; 82306; 82310; 82652; 82947; 83690; 83735; 83880; 83970; 84100; 84484; 85014; 85018; 85025; 85610; 86140; 86850; 86900; 86901; 87804; 93005; 96361; 96374; 96375; 97110; 97112; 97116; 97161; 97530; 99284; G0378; J1200; J1940; J2270; J2405; J2430; J7030; J7040; J7050; P9016; P9047; Q9967; U0003

== ENCOUNTER 2021-01-25 02:34 | Emergency (ER) | payer OTHER ==
--- NOTE | 2021-01-25 03:36 | ER ---
Nurse's Notes [facility] Name: Kasi Jones Age: 55 yrs Sex: Male : 1965 Arrival Date: 01/25/2021 Time: 02:35 Bed 3 Private MD: Diagnosis: Trach tube pulled out. Trach tube replaced Presentation: 01/25 02:35 Chief complaint: EMS states: pt pulled Trach cuff out, hx of throat cancer. Coronavirus em screen: At this time, the client does not indicate any symptoms associated with coronavirus-19. Ebola Screen: Patient negative for fever greater than or equal to 101.5 degrees Fahrenheit, and additional compatible Ebola Virus Disease symptoms Patient denies exposure to infectious person. Patient denies travel to an Ebola-affected area in the 21 days before illness onset. No symptoms or risks identified at this time. Initial Sepsis Screen: Does the patient meet any 2 criteria? HR > 90 bpm. Does the patient have a suspected source of infection? No. Patient's initial sepsis screen is negative. Risk Assessment: Do you want to hurt yourself or someone else? Patient reports no desire to harm self or others. Onset of symptoms was January 25, 2021. 02:35 Method Of Arrival: EMS: [facility] em 02:35 Acuity: GERMÁN 1 bb 02:56 Note Respiratory and MD inserted a size 4 Shiley cuffed trach. wg 03:57 Note Pt report given to [facility]. Pt transported back to [facility]. wg Triage Assessment: 02:40 General: Appears distressed, uncomfortable, slender, Behavior is cooperative, anxious. wg Pain: Noted to be agitated, restless. EENT: Throat is pink Tracheal opening patent with adequate air exchage. Pt's mucous membrane pink . Neuro: No deficits noted. Cardiovascular: No deficits noted. Respiratory: Airway is patent Trachea midline Respiratory effort is even, Respiratory pattern is regular. GI: No deficits noted. : No deficits noted. Derm: No deficits noted. Musculoskeletal: No deficits noted. Historical: - Allergies: 02:38 No Known Allergies; em - PSHx: 02:38 PEG tube; tracheostomy; em - Immunization history:: Adult Immunizations unknown. - Social history:: Smoking status: unknown. Screenin:55 Abuse screen: Denies threats or abuse. Nutritional screening: No deficits noted. ea Tuberculosis screening: No symptoms or risk factors identified. Fall Risk None identified. Assessment: 03:01 Reassessment: Pt resting comfortably on stretcher in no obvious distress. Patient wg states symptoms have improved. 03:03 General: Appears. wg 04:10 Reassessment: Patient and/or family updated on plan of care and expected duration. Pain ea level reassessed. Pt is alert respirations even and unlabored, pt resting comfortably, awaiting on EMS for transport back to LTC facility. Vital Signs: 02:35 BP 218 / 118; Pulse 140; Resp 34; Temp 98.8; Pulse Ox 98% on Venturi mask; Weight 39.01 em kg; 02:42 BP 189 / 114; Pulse 150; Resp 30; Pulse Ox 98% on Simple Mask; wg 02:53 BP 196 / 119; Pulse 84; Resp 20; Pulse Ox 100% ; ea 02:56 BP 164 / 105; Pulse 80; Resp 20; Pulse Ox 100% ; wg 03:30 BP 160 / 95; Pulse 78; Resp 18; Pulse Ox 99% on R/A; wg ED Course: 02:35 Patient arrived in ED. em 02:35 Inserted saline lock: 20 gauge in left forearm, using aseptic technique. wg 02:38 Triage completed. em 02:38 Arm band placed on. em 02:50 Tank Goodman MD is Attending Physician. pkl 02:51 Adrienne Hernandez, DARRIUS is Primary Nurse. ea 02:53 Patient has correct armband on for positive identification. Bed in low position. Call ea light in reach. Side rails up X2. 03:29 reinsertion of trach. wg 03:37 IV discontinued. wg Administered Medications: No medications were administered Outcome: 03:35 Discharge ordered by . pkl 03:37 Discharged to [facility]. Report called to DARRIUS Mullins wg 03:37 Condition: stable 03:37 Discharge instructions given to patient, [facility], Instructed on discharge instructions, follow up and referral plans. Demonstrated understanding of instructions, follow-up care. 04:23 Patient left the ED. wg Signatures: Tank Goodman MD MD pkl Munoz, Edgar, RN RN em Ballard, Brenda, RN RN bb Antunez, Elena, RN RN ea Gamba, Liam, RN wg Corrections: (The following items were deleted from the chart) 02:45 02:35 Acuity: GERMÁN 2 em bb 03: 02:50 General: Appears distressed, uncomfortable, slender, Behavior is cooperative, wg anxious, 03: 02:50 Pain: Noted to be agitated, restless, [facility] 03: 02:50 EENT: Throat is pink Tracheal opening patent with adequate air exchage. Pt's wg mucous membrane pink . 03: 02:50 Neuro: No deficits noted. [facility] 03: 02:50 Cardiovascular: No deficits noted. [facility] 03: 02:50 Respiratory: Airway is patent Trachea midline Respiratory effort is even, wg Respiratory pattern is regular, : 02:50 GI: No deficits noted. [facility] : 02:50 : No deficits noted. [facility] : 02:50 Derm: No deficits noted. [facility] 03: 02:50 Musculoskeletal: No deficits noted. [facility] 03: 02:56 BP 164 / 105; ea
--- NOTE | 2021-01-25 03:36 | EDPHYS ---
Physician Documentation [facility] Name: Kasi Jones Age: 55 yrs Sex: Male : 1965 Arrival Date: 01/25/2021 Time: 02:35 Bed 3 Private MD: ED Physician Tank Goodman HPI: 01/25 03:26 This 55 yrs old Male presents to ER via EMS with unknown complaint. pkl 03:26 The patient has shortness of breath Patient pulled out his Trach tube.. Onset: The pkl symptoms/episode began/occurred just prior to arrival. Patient has H/O throat cancer. Historical: - Allergies: 02:38 No Known Allergies; em - PSHx: 02:38 PEG tube; tracheostomy; em - Immunization history:: Adult Immunizations unknown. - Social history:: Smoking status: unknown. ROS: 03:26 Eyes: Negative for injury, pain, redness, and discharge. pkl 03:26 ENT: Positive for Sammie tube pulled out. 03:30 Cardiovascular: Negative for chest pain. pkl 03:30 Respiratory: Positive for shortness of breath, at rest. 03:30 Abdomen/GI: Negative for abdominal pain, nausea, vomiting, and diarrhea. 03:30 Back: Negative for acute changes. 03:30 : Negative for urinary symptoms. 03:30 MS/extremity: Negative for acute changes. 03:30 Skin: Negative for rash. 03:30 Neuro: Negative for altered mental status, loss of consciousness. Exam: 03:30 Head/Face: Normocephalic, atraumatic. Eyes: Pupils equal round and reactive to light, pkl extra-ocular motions intact. Lids and lashes normal. Conjunctiva and sclera are non-icteric and not injected. Cornea within normal limits. Periorbital areas with no swelling, redness, or edema. ENT: Nares patent. No nasal discharge, no septal abnormalities noted. Tympanic membranes are normal and external auditory canals are clear. Oropharynx with no redness, swelling, or masses, exudates, or evidence of obstruction, uvula midline. Mucous membranes moist. Neck: Trachea midline, no thyromegaly or masses palpated, and no cervical lymphadenopathy. Supple, full range of motion without nuchal rigidity, or vertebral point tenderness. No Meningismus. Chest/axilla: Normal chest wall appearance and motion. Nontender with no deformity. No lesions are appreciated. Cardiovascular: Regular rate and rhythm with a normal S1 and S2. No gallops, murmurs, or rubs. Normal PMI, no JVD. No pulse deficits. Respiratory: Lungs have equal breath sounds bilaterally, clear to auscultation and percussion. No rales, rhonchi or wheezes noted. No increased work of breathing, no retractions or nasal flaring. Abdomen/GI: Soft, non-tender, with normal bowel sounds. No distension or tympany. No guarding or rebound. No evidence of tenderness throughout. Back: No spinal tenderness. No costovertebral tenderness. Full range of motion. Skin: Warm, dry with normal turgor. Normal color with no rashes, no lesions, and no evidence of cellulitis. MS/ Extremity: Pulses equal, no cyanosis. Neurovascular intact. Full, normal range of motion. Neuro: Awake and alert, GCS 15, oriented to person, place, time, and situation. Cranial nerves II-XII grossly intact. Motor strength 5/5 in all extremities. Sensory grossly intact. Cerebellar exam normal. Normal gait. Vital Signs: 02:35 BP 218 / 118; Pulse 140; Resp 34; Temp 98.8; Pulse Ox 98% on Venturi mask; Weight 39.01 em kg; 02:42 BP 189 / 114; Pulse 150; Resp 30; Pulse Ox 98% on Simple Mask; wg 02:53 BP 196 / 119; Pulse 84; Resp 20; Pulse Ox 100% ; ea 02:56 BP 164 / 105; Pulse 80; Resp 20; Pulse Ox 100% ; wg 03:30 BP 160 / 95; Pulse 78; Resp 18; Pulse Ox 99% on R/A; wg MDM: 02:50 Patient medically screened. pkl 03:33 Data reviewed: vital signs, nurses notes. ED course: Trach tube replaced. Patient pkl feeling better. Not in any distress. Administered Medications: No medications were administered Disposition Summary: 01/25/21 03:35 Discharge Ordered Location: Home pkl Problem: new pkl Symptoms: have improved pkl Condition: Stable pkl Diagnosis - Trach tube pulled out. Trach tube replaced pkl Followup: pkl - With: Private Physician - When: 2 - 3 days - Reason: Re-evaluation by your physician Forms: - Medication Reconciliation Form pkl - Thank You Letter pkl - Antibiotic Education pkl - Prescription Opioid Use pkl Signatures: Tank Goodman MD MD pkl Jamil Carroll, RN RN em
[2021-01-25 04:36] VITALS: TEMP 98.8
[2021-01-25 04:41] VITALS: BP 160/95; O2SAT 99
== END 2021-01-25 04:23 | disposition home or self-care (01) ==
LOC: ER 02:34
DX: J95.09 Other tracheostomy complication (principal); Z85.12 Personal history of malignant neoplasm of trachea
CPT/HCPCS: 99291